=== PATIENT | female | born 1975 | race Caucasian/White ===

== ENCOUNTER 2018-03-08 17:19 | Emergency (ER) | payer MEDICAID, SELFPAY ==
[2018-03-08 17:20] VITALS: BP 114/70; PULSE 99; RESP 16; TEMP 36.9; O2SAT 97; BMI 27.8
--- NOTE | 2018-03-08 17:42 | ED.DCSUM_ITS ---
- ER Visit Summary Date of Service: 03/08/18 Chief Complaint: Rash History of Present Illness: The patient is a 43 F presenting for evaluation secondary to rash. Patient has a rash on her bilateral arms that started after she worked in the garden. Patient reports that it started off looking like it was poison sarah and then has progressively gone up her arms, was initially associated with just redness and itching and now has both redness itching as well as some pain. She denies any constitutional symptoms such as fever. She does have a history of contact allergies in the past. She denies any lip or tongue swelling. Physical Examination: Physical exam unremarkable except for skin exam of the bilateral arms. There is evidence of Marilin vesicles, generalized erythema of the entire volar surface of the forearm and upper arm, no evidence of lymphangitic streaking. No real underlying induration or fluctuance. Normal distal pulses normal distal sensation. Test Results: None indicated Emergency Department Course and Treatment: Patient is presenting secondary to a rash. This does seem like a relatively significant case of contact dermatitis, given the fact that there is pain associated with it now and generalized redness there could be an element of some cellulitis as well as the patient has been itching. There is no obvious areas of fluctuance or induration or any areas that would require draining. Patient has normal vitals and I believe that workup is necessary. Patient will be placed on a course of prednisone and Keflex, instructed to follow-up with primary care. Disposition: Discharge Impression: 1. Contact dermatitis with possible underlying cellulitis This note was generated with [employer] dictation software. It may contain incorrect words, spelling, and punctuation that were not noted in review of the chart prior to signing ED Disposition - Plan for ED Patient: Disposition: Home or Assisted Living Chief Complaint: Cellulitis Diagnosis: Contact dermatitis Instructions: ED Dermatitis Poison Sarah Prescriptions: Cephalexin [Keflex] 500 mg PO Q6 #40 cap Prednisone [Deltasone] 60 mg PO DAILY #15 tab Referrals: Willard Huber DO [Primary Care Provider] - 10-14 Days if not better
[2018-03-08] MEDS: Cephalexin 250 MG Capsule 500 MG PO (17:43)
[2018-03-08] MEDS: predniSONE 20 MG Tablet 60 MG PO (17:43)
== END 2018-03-08 17:47 | disposition home or self-care (01) ==
LOC: ED 17:44
PROVIDERS: Emergency Provider Emergency Medicine; Family Provider Student in an Organized Health Care Education/Training Program; PCP Student in an Organized Health Care Education/Training Program
DX: L25.9 Unspecified contact dermatitis, unspecified cause (principal)
CPT/HCPCS: 99283

== ENCOUNTER → 2018-12-01 20:00 | Outpatient (CLI) | payer MEDICAID, SELFPAY | PROVIDERS: Family Provider Internal Medicine; PCP Internal Medicine; Referring Provider Internal Medicine; Visit Provider Internal Medicine | DX: G47.33 Obstructive sleep apnea (adult) (pediatric) (principal); R06.83 Snoring; R53.83 Other fatigue | CPT/HCPCS: 95810 ==

== ENCOUNTER 2020-07-29 10:56 | Emergency (ER) | payer MEDICAID, SELFPAY ==
[2020-07-29 10:57] VITALS: BP 136/76; PULSE 106; RESP 18; TEMP 36.8; O2SAT 99; BMI 33.9
--- NOTE | 2020-07-29 10:59 | NURSING ---
NO OLD EKGS
--- NOTE | 2020-07-29 11:19 | EKG12_ITS ---
Test Reason : CP Blood Pressure : / mmHG Vent. Rate : 107 BPM Atrial Rate : 107 BPM P-R Int : 146 ms QRS Dur : 074 ms QT Int : 344 ms P-R-T Axes : 072 084 026 degrees QTc Int : 459 ms Sinus tachycardia Otherwise normal ECG Confirmed by AVRIL MCNEAL, FANNY ([id number]), staff editor MAGGI GUERRERO ([id number]) on 08/01/2020 9:13:42 AM Referred By: JORGE Confirmed By:FANNY MACKENZIE MD
--- NOTE | 2020-07-29 11:19 | RAD_ITS ---
STUDY: X-RAY CHEST REASON FOR EXAM: Female, 45 years old. POSITIVE COVID X 2 WEEKS TECHNIQUE: Single AP portable view of the chest. COMPARISON: 11/27/2014 FINDINGS: The lungs are clear and expanded. There is no demonstrated pleural abnormality. Normal size heart. Normal mediastinum and roxie. Normal visualized pulmonary arteries. Normal visualized aortic arch and descending thoracic aorta. Normal visualized thoracic spine. Normal visualized ribs, clavicles, and shoulders. There is no demonstrated abnormality of the visualized soft tissue structures of the upper abdomen. RAD/Chest 1 View (Portable) IMPRESSION: Nonacute portable x-ray examination of the chest. Electronically Signed: Farshad Ng MD (Brooks) at 12:05 EST , Service support ,
--- NOTE | 2020-07-29 11:21 | ED.DCSUM_ITS ---
- ER Visit Summary Date of Service: 07/29/20 Chief Complaint: Shortness of breath, palpitations History of Present Illness: The patient is a 45 F who presents with shortness of breath and palpitations that have been waxing and waning over the past 3 days. Patient states she feels some tightness in her chest. Patient states she recently tested positive for COVID-19. Patient states her symptoms started more than 2 weeks ago. Patient states her positive test was approximately 10 days ago. Patient states she did lose her sense of taste and smell but it is starting to return. Patient admits to subjective chills but denies any fevers. Physical Examination: Vital signs are stable except for mild tachycardia of 106. Patient is afebrile. Patient is in no acute distress. Oral mucosa is pink and moist. Neck is supple. Trachea is midline. There is no JVD noted. Heart was regular and slightly tachycardic. Lungs are clear and equal bilaterally. Abdomen is soft. Bowel sounds are normal. There is no tenderness. There is no rebound or guarding noted. Skin is warm dry. Cranial nerves II through XII are intact. There are no focal motor or sensory deficits noted. Extremities are intact. There is no calf tenderness or edema. Test Results: EKG shows normal sinus rhythm with a rate of 107. There are no acute ST or T wave changes. This was interpreted by myself. Portable 1 view chest x-ray was obtained. On my interpretation, lung smith are clear. There is normal cardiac silhouette. Bony thorax is normal. There is no acute process noted. Radiologist also interpreted the x-ray and agrees. CBC and comprehensive metabolic profile were within normal limits. Troponin was normal. D-dimer was normal at 0.35. Emergency Department Course and Treatment: Patient was advised of her findings. Patient was instructed to follow-up with her primary care physician in 5 to 7 days. Patient understood and was agreeable with the plan. All questions were answered. Disposition: Discharge home Impression: 1. Palpitations This note was generated with [employer] dictation software. It may contain incorrect words, spelling, and punctuation that were not noted in review of the chart prior to signing ED Disposition - Plan for ED Patient: Disposition: Home or Assisted Living Diagnosis: Palpitations Instructions: ED Palpitations Referrals: Linda Mauro MD [Primary Care Provider] - 5-7 Days
[2020-07-29 11:32] LABS: Absolute Lymphocyte Count 2.88 X10^3/uL (0.83-4.51); Absolute Neutrophil Count 4.7 X10^3/uL (2.0-7.7); Basophil# 0.04 X10^3/uL; Basophil% 0.5 % (0-1); Eosinophil# 0.19 X10^3/uL; Eosinophils% 2.2 % (0-5); Hematocrit 40.6 % (37-47); Hemoglobin 13.9 g/dL (12.0-15.0); Lymphocyte # 2.88 X10^3/ul (4.0); Lymphocyte % 33.8 % (19-41); Mean Corp Hgb Conc 34.2 g/dL (32-36); Mean Corpuscular Hgb 30.3 pg (27.0-32.0); Mean Corpuscular Volume 88.6 fL (81-99); Mean Platelet Vol. 9.9 fl (6.2-12.0); Monocyte# 0.66 X10^3/uL; Monocyte% 7.7 % (0-10); NRBC Flagged by Analyzer 0 % (0-5); Neutrophil # 4.72 X10^3/uL (2.7-7.7); Neutrophil % 55.4 % (47-70); Platelet Count 370 K/mm3 (150-450); RBC Distribution Width CV 12.4 % (11.6-14.6); RBC Distribution Width SD 39.8 fl (35.1-43.9); Red Blood Count 4.58 M/mm3 (4.2-5.4); White Blood Count 8.5 K/mm3 (4.4-11.0)
[2020-07-29 11:39] LABS: D-Dimer Quantitative (DVT/PE) 0.35 FEU/ug/m (0.27-0.49)
[2020-07-29 11:47] LABS: AST(SGOT) 10 U/L (15-37); Alanine Aminotransfer ALT/SGPT 22 U/L (13-56); Albumin, Serum 3.6 g/dL (3.2-5.0); Alkaline Phosphatase 31 U/L (45-117); Anion Gap 7 (5-15); BUN 7 mg/dL (7-18); BUN/Creat Ratio 9.5 RATIO (10-20); Calcium,Total 8.9 mg/dL (8.5-10.1); Chloride 108 mmol/L (98-107); Creatinine, Serum 0.74 mg/dL (0.55-1.02); EST Glomerular Filtration Rate 92 mL/min (>60); Est Glom Filt Rate - Afr Amer 111 mL/min (>60); Estimated Creatinine Clearance 88.21 ml/min; Globulin 3.7 g/dL (2.2-4.2); Glucose 106 mg/dL (74-106); Potassium 3.7 mmol/L (3.5-5.1); Protein, Total 7.3 g/dL (6.4-8.2); Sodium Level 141 mmol/L (136-145)
[2020-07-29 13:38] VITALS: BP 110/67; PULSE 80; RESP 17; O2SAT 99
== END 2020-07-29 13:40 | disposition home or self-care (01) ==
PROVIDERS: Emergency Provider Emergency Medicine; PCP Internal Medicine
DX: R00.2 Palpitations (principal); U07.1 COVID-19; E03.9 Hypothyroidism, unspecified
CPT/HCPCS: 71045; 80053; 84484; 85025; 85379; 93005; 96360; 96361; 99285; J7040; A4216

== ENCOUNTER 2023-04-18 12:12 | Emergency (ER) | payer OTHER, MEDICAID, SELFPAY ==
[2023-04-18 12:13] VITALS: BP 119/54; PULSE 82; RESP 18; TEMP 35.7; O2SAT 97; BMI 32.1
--- NOTE | 2023-04-18 12:25 | EDS_ITS ---
HPI <EVARISTO Fontana - Last Filed: 04/18/23 13:43> History of Present Illness Chief Complaint: Back Narrative Narrative: 48-year-old female presents with left flank/back pain that started about 3 days ago. She states initially she could pinpoint the spot that hurt but now it seems more diffuse. It is worse with movement. She cannot think of any inciting event but states a week ago she was lifting things at home. 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 No vomiting. No fever or chills. She states about 2 days ago she started her menstrual cycle so she could not tell if there was blood in her urine she has no burning or frequency. No history of kidney stones. Surgical history includes essure tubal ligation. PFSH <EVARISTO Fontana - Last Filed: 04/18/23 13:43> PFSH Home Medications albuterol sulfate 90 mcg/actuation aerosol inhaler 1 puff IH Q4H PRN PRN Sob &/Or Wheezing 07/29/20 [History Last Taken Unknown] levothyroxine 50 mcg tablet 50 mcg PO DAILY 07/29/20 [History Last Taken Unknown] methocarbamol 500 mg tablet 500 mg PO Q8H 3 days #9 tabs 04/18/23 [Rx Last Taken Unknown] naproxen 500 mg tablet (Naprosyn) 500 mg PO BID PRN pain #20 tabs 04/18/23 [Rx Last Taken Unknown] ondansetron 4 mg disintegrating tablet 4 mg PO Q8H PRN PRN Nausea #10 tabs 04/18/23 [Rx Last Taken Unknown] Allergy/AdvReac Type Severity Reaction Status Date / Time cephalexin [From Keflex] Allergy Hives Verified 04/18/23 12:12 cat dander AdvReac Shortness Verified 04/18/23 12:12 of breath poison ghislaine extract AdvReac Swelling Verified 04/18/23 12:12 Social History Smoking Status: Never smoker ROS <EVARISTO Fontana - Last Filed: 04/18/23 13:43> ROS ED ROS Narrative Constitutional: Negative for fever, chills, malaise. CVS: Negative for palpitations, chest pain, syncope. Respiratory: Negative for shortness of breath, cough. GI: Negative for abdominal pain, nausea, vomiting, diarrhea, constipation, melena, hematochezia. : Negative for dysuria, hematuria or frequency. EXAM <EVARISTO Fontana - Last Filed: 04/18/23 13:43> Physical Exam Narrative Exam Narrative: CONST: Patient sitting in no acute distress. EYES: Normal inspection. NECK: Normal inspection. RESP: No respiratory distress, CTAB. CVS: Regular rate and rhythm, no murmur, no gallop. ABD: Soft and nontender, no guarding or rebound, nondistended, no hepatosplenomegaly. Back: Normal inspection, no midline or CVA tenderness. Back pain reproducible with movement. SKIN: Color normal, no rash, warm, dry, intact. EXTREMITIES: Normal appearance, no pedal edema. NEURO: Oriented x4. PSYCH: Normal affect. Const Vital Signs: 04/18/23 12:13 Temperature 96.3 F L Temperature Source Temporal Pulse Rate 82 Respiratory Rate 18 Blood Pressure 119/54 L Blood Pressure Mean 75 Pulse Ox 97 Oxygen Delivery Method Room Air <Dr. Diaz Garcia MD - Last Filed: 04/18/23 12:34> Physical Exam Const Vital Signs: 04/18/23 12:13 Temperature 96.3 F L Temperature Source Temporal Pulse Rate 82 Respiratory Rate 18 Blood Pressure 119/54 L Blood Pressure Mean 75 Pulse Ox 97 Oxygen Delivery Method Room Air MDM <EVARISTO Fontana - Last Filed: 04/18/23 13:43> [facility] Narrative Medical decision making narrative: Patient has left flank pain over the last few days. She appears well and nontoxic and is afebrile with normal vital signs. Normal cardiopulmonary exam. Abdomen is soft and nontender. She has no reproducible tenderness of her spine or back but does have a lot of pain with movement. She is very gingerly getting into the bed and states bending worsens the pain so I suspect this is musculoskeletal. She was treated with IM Toradol and urinalysis obtained. It does show blood consistent with her menstrual cycle but no nitrates or bacteria so I do not think this is a UTI. The nurse states after she ambulated to the bathroom she was diaphoretic and uncomfortable so a CT was obtained to rule out a kidney stone. CT shows no acute process. Since this is most likely musculoskeletal I prescribed naproxen and a muscle relaxer and recommended follow-up with her primary care. She was discharged in stable condition. Differential: Musculoskeletal flank pain, kidney stone, UTI, pyelonephritis I have personally performed a face to face assessment of the patient and have reviewed the MANDO Note. I performed a substantive portion of the visit including all aspects of the following. My iverson findings include: History is 48-year-old female complaining of left flank and paraspinal back pain. Denies any fall injury or trauma. No prior back history. No dysuria or fever. Worse with movement. Exam is [48-year-old female no acute distress. Vital signs stable afebrile. HEENT exam normal. Lungs clear. Heart regular rhythm. Abdomen soft nontender. Back to the left paraspinal soft tissue tenderness. No ecchymosis or bruising no redness or warmth. No rash. Moving all 4 extremities. Neurovascularly intact. Normal strength and sensation. Neurologic exam normal.] Medical Decision Making [she states that 48-year-old exam consistent with musculoskeletal back pain. Treated with IM Toradol. We will check a UA. Clinically this does not appear to be a kidney stone or UTI.] Other additions or changes: [None] Lab Data Attestation: I reviewed the patient's lab results. Labs: Laboratory Results - last 24 hr 04/18/23 12:36 Urine Color Yellow Urine Clarity Clear Urine pH 7.0 Ur Specific [place] 1.010 Urine Protein Negative Urine Glucose (UA) Normal Urine Ketones Negative Urine Occult Blood 250 H Urine Nitrite Negative Urine Bilirubin Negative Urine Urobilinogen Normal Ur Leukocyte Esterase 25 H Urine RBC 25-50 SEEN Urine WBC 0-5 SEEN Ur Squamous Epith Cells 0-5 SEEN Urine Bacteria 0 SEEN Urine Mucus 0 SEEN Radiography Diagnostic Testing: Clinical Impression(s) from Imaging Studies Abdomen/Pelvis CT 04/18/23 12:50 IMPRESSION: Normal unenhanced CT of the abdomen and pelvis. Electronically Signed: Viraj Man MD at 13:31 EDT , <Dr. Diaz Garcia MD - Last Filed: 04/18/23 12:34> MDM MDM Narrative Medical decision making narrative: I have personally performed a face to face assessment of the patient and have reviewed the MANDO Note. I performed a substantive portion of the visit including all aspects of the following. My iverson findings include: History is 48-year-old female complaining of left flank and paraspinal back pain. Denies any fall injury or trauma. No prior back history. No dysuria or fever. Worse with movement. Exam is [48-year-old female no acute distress. Vital signs stable afebrile. HEENT exam normal. Lungs clear. Heart regular rhythm. Abdomen soft nontender. Back to the left paraspinal soft tissue tenderness. No ecchymosis or bruising no redness or warmth. No rash. Moving all 4 extremities. Neurovascularly intact. Normal strength and sensation. Neurologic exam normal.] Medical Decision Making [she states that 48-year-old exam consistent with musculoskeletal back pain. Treated with IM Toradol. We will check a UA. Clinically this does not appear to be a kidney stone or UTI.] Other additions or changes: [None] History & Record Review Discussion w/independent historian: Patient Additional record(s) reviewed:: Prior inpatient record, Prior outpatient record, Prior ED visit and Prior labs Lab Data Labs: Laboratory Results - last 24 hr 04/18/23 12:36 Urine Color Yellow Urine Clarity Clear Urine pH 7.0 Ur Specific [place] 1.010 Urine Protein Negative Urine Glucose (UA) Normal Urine Ketones Negative Urine Occult Blood 250 H Urine Nitrite Negative Urine Bilirubin Negative Urine Urobilinogen Normal Ur Leukocyte Esterase 25 H Urine RBC 25-50 SEEN Urine WBC 0-5 SEEN Ur Squamous Epith Cells 0-5 SEEN Urine Bacteria 0 SEEN Urine Mucus 0 SEEN Radiography Diagnostic Testing: Clinical Impression(s) from Imaging Studies Abdomen/Pelvis CT 04/18/23 12:50 IMPRESSION: Normal unenhanced CT of the abdomen and pelvis. Electronically Signed: Viraj Man MD at 13:31 EDT , Discharge Plan Triage Chief Complaint: Back Other Complaint: Abd Pain Flank Pain ED Midlevel Provider: Audrey Irwin ED Provider: Diaz Garcia Dx/Rx/DC Orders Clinical Impression: Acute left flank pain, Musculoskeletal back pain Instructions: Medicine for Pain, ED Flank Pain, Uncertain Cause Prescriptions: New naproxen [Naprosyn] 500 mg tablet 500 mg PO BID PRN (Reason: pain) Qty: 20 0RF ondansetron 4 mg tablet,disintegrating 4 mg PO Q8H PRN PRN (Reason: Nausea) Qty: 10 0RF methocarbamol 500 mg tablet 500 mg PO Q8H 3 Days Qty: 9 0RF No Action levothyroxine 50 MCG tablet 50 mcg PO DAILY albuterol sulfate 1 PUFF inhaler 1 puff IH Q4H PRN PRN (Reason: Sob &/Or Wheezing) Primary Care Provider: Care Physician,No Primary Referrals: Linda Mauro MD [Med Staff - Ship Pilot Dispatcher] - Activity Restrictions/Additional Instructions: Your CT scan looked normal with no evidence of kidney stone or abnormality. I suspect this is musculoskeletal pain and prescribed naproxen which is twice a day. It is an anti-inflammatory pain reliever. You can also buy [id number] Tylenol and lidocaine patches and use ice. Please follow-up with your primary care doctor. Disposition Disposition: Home, Self Care
[2023-04-18] MEDS: Ketorolac 30 MG/ML Syringe IM (12:34)
[2023-04-18 12:41] LABS: Bacteria 0 SEEN /hpf (None Seen); Mucous, Urine 0 SEEN /hpf (<or=2+)
[2023-04-18 12:43] LABS: Color, Urine Yellow (Yellow); Glucose, Dipstick Normal (Normal); Ketone-Dipstick Negative (Negative); Leukocyte Esterase-Dipstick 25 /ul (Negative); Nitrite-Dipstick Negative (Negative); Occult Blood-Urine 250 /ul (Negative); Protein-Dipstick Negative (Negative); Urine Bilirubin Dipstick Negative (Negative); Urine Clarity Clear (Clear); Urine Urobilinogen Normal (Normal)
--- NOTE | 2023-04-18 12:50 | CT_ITS ---
STUDY: CT ABDOMEN AND PELVIS WITHOUT CONTRAST REASON FOR EXAM: Female, 48 years old. Left flank pain RADIATION DOSAGE (If Supplied By Facility): CTDIvol = ( 11.32 ) mGy, DLP = ( 554.06 ) mGycm TECHNIQUE: Transaxial images were obtained from the dome of the diaphragm to the symphysis pubis without oral contrast, and without intravenous contrast. Sagittal and coronal images were reconstructed. Individualized dose optimization techniques were used for this CT. COMPARISON: None. FINDINGS: The visualized lung bases are unremarkable. The visualized portions of the heart are within normal limits. Normal liver. Normal gallbladder and extrahepatic biliary system. Normal spleen. Normal pancreas. Normal bilateral adrenal glands. Normal right kidney. Normal left kidney. Normal visualized stomach. Normal small intestine. Normal colon. The appendix is visualized and appears normal. Normal abdominal aorta. Normal inferior vena cava. Normal retroperitoneum. Normal urinary bladder. Cervical ring is seen. There is evidence of prior ESSURE replacement. Normal abdominal wall. Normal osseous structures. CT/Abdomen/Pelvis without Cont IMPRESSION: Normal unenhanced CT of the abdomen and pelvis. Electronically Signed: Viraj Man MD at 13:31 EDT ,
[2023-04-18] MEDS: Ondansetron ODT 4 MG Tablet PO (12:53)
[2023-04-18 12:54] LABS: Red Blood Cells-Urine 25-50 SEEN /hpf (0-5); White Blood Cells 0-5 SEEN /hpf (0-5)
[2023-04-18 12:55] LABS: Squamous Epithelial Cells - UA 0-5 SEEN /hpf (5-10)
[2023-04-18] MEDS: Lidocaine 5% Patch 1 PATCH TOPICAL (13:42)
== END 2023-04-18 13:46 | disposition home or self-care (01) ==
PROVIDERS: Physician Assistant; Emergency Provider Emergency Medicine; Visit Provider Emergency Medicine
DX: R10.9 Unspecified abdominal pain (principal); M54.9 Dorsalgia, unspecified
CPT/HCPCS: 74176; 81001; 96372; 99284

== ENCOUNTER 2023-10-12 11:21 | Emergency (ER) | payer OTHER, SELFPAY ==
[2023-10-12 11:21] VITALS: BP 143/76; PULSE 86; RESP 16; TEMP 36.5; O2SAT 100; BMI 33.4
--- NOTE | 2023-10-12 11:32 | CT_ITS ---
INDICATION: Pain EXAMINATION: CT ABDOMEN AND PELVIS WITHOUT CONTRAST - CT Abdomen And Pelvis W/O Contrast Injection TECHNIQUE: Helically acquired images were obtained of the abdomen and pelvis without oral or IV contrast. A radiation dose optimization technique was used for this scan. IV Contrast dosage and agent: None. Oral contrast: None. RADIATION DOSAGE (If Supplied By Facility): CTDIvol = ( 12.64 ) mGy, DLP = ( 617.46 ) mGycm COMPARISON: April 18, 2023 FINDINGS: LOWER CHEST: Lung bases are clear. No cardiomegaly or pericardial effusion. The lack of intravenous contrast limits evaluation of solid visceral organs. LIVER: Homogeneous. No focal mass. GALLBLADDER AND BILIARY TREE: No calcified gallstones. No gallbladder distension or wall edema. No intra- or extrahepatic biliary ductal dilation. PANCREAS: No focal cystic or solid mass. SPLEEN: Normal size without focal cystic or solid mass. ADRENAL GLANDS: No nodules. KIDNEYS AND URETERS: Normal renal size and position. There is mild left-sided hydronephrosis. There is a nonobstructing 4.6 mm left renal calculus. PERITONEUM: No ascites or free air. No other fluid collection. BOWEL: No evidence of acute appendicitis. No stomach or bowel distension. There is a moderate amount of stool throughout the colon. No focal inflammatory change. LYMPH NODES: No enlarged mesenteric or retroperitoneal lymph nodes. VESSELS: Aorta is non-dilated. URINARY BLADDER: Unremarkable. REPRODUCTIVE ORGANS: No pelvic masses. There are stable Essure coils in place. ABDOMINAL WALL: No discrete abdominal or pelvic wall hernia. BONES: No lytic or blastic abnormality. CT/Abdomen/Pelvis without Cont IMPRESSION: Mild right-sided hydronephrosis with no associated radiopaque obstructing calculus, may be secondary to recent passage of a calculus, a radiolucent obstructing calculus or an infectious process. Moderate amount of stool throughout the colon. Nonobstructing 4.6 mm left renal calculus. Electronically Signed: Ivis Romero MD at 12:32 EST ,
--- NOTE | 2023-10-12 11:33 | EX.ED.DYSGE1 ---
HPI <AMELIA Talbert - Last Filed: 10/12/23 12:50> History of Present Illness Chief Complaint: Flank Pain Narrative Narrative: Patient is a 48-year-old female with history of hypothyroidism who presents to the emergency department with 3 to 4 days of worsening right flank pain. Patient states that she thought she had a UTI, however over the last 24 hours, she has been having shooting pains in her stomach, radiation from her flank to her abdomen. She was trying to hold off to see her doctor on Friday or Friday however states the pain is severe and she is here for evaluation. Denies any nausea or vomiting. PFSH <AMELIA Talbert - Last Filed: 10/12/23 12:50> PFSH Home Medications albuterol sulfate 90 mcg/actuation aerosol inhaler 1 puff IH Q4H PRN PRN Sob &/Or Wheezing 07/29/20 [History Last Taken Unknown] levothyroxine 50 mcg tablet 50 mcg PO DAILY 07/29/20 [History Last Taken Unknown] methocarbamol 500 mg tablet 500 mg PO Q8H 3 days #9 tabs 04/18/23 [Rx Last Taken Unknown] naproxen 500 mg tablet (Naprosyn) 500 mg PO BID PRN pain #20 tabs 04/18/23 [Rx Last Taken Unknown] ondansetron 4 mg disintegrating tablet 4 mg PO Q8H PRN PRN Nausea #10 tabs 04/18/23 [Rx Last Taken Unknown] sulfamethoxazole 800 mg-trimethoprim 160 mg tablet (Bactrim DS) 1 tab PO BID #20 tabs 10/12/23 [Rx Last Taken Unknown] Allergy/AdvReac Type Severity Reaction Status Date / Time cephalexin [From [facility]] Allergy Hives Verified 04/18/23 12:12 cat dander AdvReac Shortness Verified 04/18/23 12:12 of breath poison ghislaine extract AdvReac Swelling Verified 04/18/23 12:12 Social History Smoking Status: Never smoker ROS <AMELIA Talbert - Last Filed: 10/12/23 12:50> ROS ED ROS Narrative Constitutional: Negative for fever, chills, weight loss, weakness Eyes: Negative for vision loss, vision change, double vision ENT: Negative for any sore throat, ear pain, congestion Cardiovascular: Negative for any chest pain, tightness, palpitations Respiratory: Negative for any cough, sputum production, hemoptysis, dyspnea, dyspnea on exertion, orthopnea Gastrointestinal: Negative for any nausea, vomiting, diarrhea, constipation, blood in stool, blood in vomit. Positive for abdominal pain, right flank pain : Negative for any urinary frequency, retention, blood in urine. Positive for dysuria Muscle skeletal: Negative for any myalgias, arthralgias, neck pain. Positive for right-sided back pain, flank pain Neurological: Negative for any headache, syncope, paresthesias, dizziness Skin: Negative for any rashes, lumps, itching, abrasions, lacerations Psychiatric: Negative for any depression, anxiety, stress, suicidal ideation, homicidal ideation Hematologic: Negative for any easy bruising, excessive bruising, easy bleeding Allergies: Negative for any eczema, hives, rash EXAM <AMELIA Talbert - Last Filed: 10/12/23 12:50> Physical Exam Narrative Exam Narrative: Vital signs reviewed. Patient does appear to be in mild to moderate discomfort to her right flank. HEET: Head normocephalic atraumatic, TMs clear bilaterally. Posterior pharynx is clear, moist mucous membranes. Nares clear bilaterally. Neck: Supple with no lymphadenopathy or tenderness. No signs of meningismus. Cardiac: Regular rate and rhythm no murmurs gallops or rubs, equal peripheral pulses bilaterally. Respiratory: Lungs clear to auscultation bilaterally. No chest tenderness. Abdomen: Soft, nondistended. No abdominal bruit or pulsatile masses. No hepatosplenomegaly. Patient does have some tenderness to the right flank, right lateral abdomen. Negative Medina sign. Extremities: No peripheral edema, no signs of gross trauma or deformity. Active full range of motion of all extremities. Neuro: Cranial nerves II through XII intact, no focal neurological deficits. Skin: Clean dry and intact with no rash, purpura, petechiae, vesicles or pustules. Backs/flank: No CVA tenderness, no midline spinal tenderness, no deformity. Psych: Normal mood and affect. No SI, HI or acute psychosis. Const Vital Signs: 10/12/23 11:21 10/12/23 13:02 Temperature 97.7 F L Temperature Source Temporal Pulse Rate 86 Respiratory Rate 16 16 Blood Pressure 143/76 H 102/70 Blood Pressure Mean 98 80 Pulse Ox 100 Oxygen Delivery Method Room Air <Dr. Maricel Locke DO - Last Filed: 10/12/23 13:52> Physical Exam Const Vital Signs: 10/12/23 11:21 10/12/23 13:02 Temperature 97.7 F L Temperature Source Temporal Pulse Rate 86 Respiratory Rate 16 16 Blood Pressure 143/76 H 102/70 Blood Pressure Mean 98 80 Pulse Ox 100 Oxygen Delivery Method Room Air MDM <AMELIA Talbert - Last Filed: 10/12/23 12:50> [facility] Lab Data Labs: Laboratory Results - last 24 hr 10/12/23 11:49 WBC 9.7 RBC 4.53 Hgb 13.6 Hct 40.7 MCV 89.8 MCH 30.0 MCHC 33.4 RDW Std Deviation 41.3 RDW Coeff of Luiza 12.6 Plt Count 360 MPV 10.0 Immature Gran % (Auto) 1.000 H Neut % (Auto) 66.6 Lymph % (Auto) 21.5 Charles % (Auto) 9.2 Eos % (Auto) 1.2 Baso % (Auto) 0.5 Absolute Neuts (auto) 6.5 Absolute Lymphs (auto) 2.08 Nucleated RBC % 0 Sodium 140 Potassium 4.1 Chloride 107 Carbon Dioxide 27.0 Anion Gap 6 BUN 12 Creatinine 0.75 Estim Creat Clear Calc 104.51 Est GFR (MDRD) Af Amer 106 Est GFR (MDRD) Non-Af 88 BUN/Creatinine Ratio 15.9 Glucose 90 Calcium 9.5 Total Bilirubin 0.50 AST 11 L ALT 18 Alkaline Phosphatase 27 L Total Protein 7.5 Albumin 3.8 Globulin 3.7 Albumin/Globulin Ratio 1.0 Lipase 24 Urine Color Yellow Urine Clarity Clear Urine pH 7.0 Ur Specific [place] 1.005 Urine Protein 15 H Urine Glucose (UA) Normal Urine Ketones Negative Urine Occult Blood 150 H Urine Nitrite Negative Urine Bilirubin Negative Urine Urobilinogen Normal Ur Leukocyte Esterase 500 H Urine RBC 0 SEEN Urine WBC 10-25 SEEN Ur Squamous Epith Cells 0-5 SEEN Urine Bacteria 1+ Urine Mucus 0 SEEN Radiography Diagnostic Testing: Clinical Impression(s) from Imaging Studies Abdomen/Pelvis CT 10/12/23 11:32 IMPRESSION: Mild right-sided hydronephrosis with no associated radiopaque obstructing calculus, may be secondary to recent passage of a calculus, a radiolucent obstructing calculus or an infectious process. Moderate amount of stool throughout the colon. Nonobstructing 4.6 mm left renal calculus. Electronically Signed: Ivis Romero MD at 12:32 EST , Treatment and Re-Evaluation :: Patient appears to be in no obvious respiratory distress, vital signs are stable. Patient does look like she is in mild to moderate amount of pain to the right flank. Differential diagnose includes pyelonephritis, UTI, back strain, obstructing uropathy. Patient received some basic laboratory values, I did include upper abdominal labs concerning for any pancreatitis just because of her history of gallstones. Patient will receive a CT scan of the abdomen pelvis without contrast. Patient receive IV fluids, Zofran as well as Toradol. Patient be reevaluated. All radiologic examinations were read, reviewed by the emergency department attending. From these reads, a plan of care will be put in place. Patient laboratory values showed normal CBC, patient's chemistries were unremarkable, kidney function within normal limit,, lipase was negative. Patient's urinalysis was positive for infection with 1+ bacteria 10-25 white blood cells, 500 leukocytes, [address] scan showed mild right-sided hydronephrosis with no associated radiopaque obstructing calculus, may be secondary to recent passage of calculus or infectious process. Nonobstructing 4.6 mm left kidney calculus. At this time, I spoke with the patient at length, she is able to pass a p.o. challenge, she does feel better after IV fluids, IV Toradol. I offered the patient pain medicine however she refused at this time. Patient be placed on Bactrim twice a day for 10 days. She was given strict return precaution to return for any worsening back pain, fever chills nausea vomiting. All questions answered, stable for discharge. <Dr. Maricel Locke, DO - Last Filed: 10/12/23 13:52> [facility] Narrative Medical decision making narrative: I have personally performed a face to face assessment of the patient and have reviewed the MANDO Note. I performed a substantive portion of the visit including all aspects of the following. My iverson findings include: History is patient is a 48-year-old female with history of hypothyroid and gallstones presenting with worsening right flank pain. She does not think she has a history of kidney stones but wonders if she is passed them in the past. She notes that she had worsening right flank pain that developed last night and woke her from sleep. It is worsened throughout the day. She describes it as sharp. Radiates around to her abdomen. Has associated nausea and sweating from the pain. Couple days ago was feeling like she was developing urinary tract infection and started treating it with a homeopathic remedy. Denies any fever. Notes that yesterday she was having more diffuse crampy abdominal pain that she thought was just gas pains. She ate chicken and [place] fires for dinner last night. Differential includes renal colic, pyelonephritis, biliary colic and cholecystitis. Lab work and CT are pending at this time. Patient initially treated with Zofran, Toradol and IV fluids (declined anything stronger for pain control at this time). Workup consistent with pyelonephritis. Kidney function is normal and she does not have a leukocytosis. Urinalysis is consistent with infection and sent for culture. Patient started on Bactrim given first dose in the emergency room. Discharged home with return precautions. She verbalized agreement and understands this plan. Other additions or changes: [None] Lab Data Labs: Laboratory Results - last 24 hr 10/12/23 11:49 WBC 9.7 RBC 4.53 Hgb 13.6 Hct 40.7 MCV 89.8 MCH 30.0 MCHC 33.4 RDW Std Deviation 41.3 RDW Coeff of Luiza 12.6 Plt Count 360 MPV 10.0 Immature Gran % (Auto) 1.000 H Neut % (Auto) 66.6 Lymph % (Auto) 21.5 Charles % (Auto) 9.2 Eos % (Auto) 1.2 Baso % (Auto) 0.5 Absolute Neuts (auto) 6.5 Absolute Lymphs (auto) 2.08 Nucleated RBC % 0 Sodium 140 Potassium 4.1 Chloride 107 Carbon Dioxide 27.0 Anion Gap 6 BUN 12 Creatinine 0.75 Estim Creat Clear Calc 104.51 Est GFR (MDRD) Af Amer 106 Est GFR (MDRD) Non-Af 88 BUN/Creatinine Ratio 15.9 Glucose 90 Calcium 9.5 Total Bilirubin 0.50 AST 11 L ALT 18 Alkaline Phosphatase 27 L Total Protein 7.5 Albumin 3.8 Globulin 3.7 Albumin/Globulin Ratio 1.0 Lipase 24 Urine Color Yellow Urine Clarity Clear Urine pH 7.0 Ur Specific [place] 1.005 Urine Protein 15 H Urine Glucose (UA) Normal Urine Ketones Negative Urine Occult Blood 150 H Urine Nitrite Negative Urine Bilirubin Negative Urine Urobilinogen Normal Ur Leukocyte Esterase 500 H Urine RBC 0 SEEN Urine WBC 10-25 SEEN Ur Squamous Epith Cells 0-5 SEEN Urine Bacteria 1+ Urine Mucus 0 SEEN Radiography Diagnostic Testing: Clinical Impression(s) from Imaging Studies Abdomen/Pelvis CT 10/12/23 11:32 IMPRESSION: Mild right-sided hydronephrosis with no associated radiopaque obstructing calculus, may be secondary to recent passage of a calculus, a radiolucent obstructing calculus or an infectious process. Moderate amount of stool throughout the colon. Nonobstructing 4.6 mm left renal calculus. Electronically Signed: Ivis Romero MD at 12:32 EST , Treatment and Re-Evaluation :: Patient appears to be in no obvious respiratory distress, vital signs are stable. Patient does look like she is in mild to moderate amount of pain to the right flank. Differential diagnose includes pyelonephritis, UTI, back strain, obstructing uropathy. Patient received some basic laboratory values, I did include upper abdominal labs concerning for any pancreatitis just because of her history of gallstones. Patient will receive a CT scan of the abdomen pelvis without contrast. Patient receive IV fluids, Zofran as well as Toradol. Patient be reevaluated. All radiologic examinations were read, reviewed by the emergency department attending. From these reads, a plan of care will be put in place. Discharge Plan Triage Chief Complaint: Flank Pain ED Midlevel Provider: Bryan Santamaria ED Provider: Maricel Locke Dx/Rx/DC Orders Clinical Impression: Acute flank pain, Pyelonephritis Instructions: ED Pyelonephritis, Female (Adult) Prescriptions: New sulfamethoxazole-trimethoprim [Bactrim DS] 800-160 mg tablet 1 tab PO BID Qty: 20 0RF No Action levothyroxine 50 MCG tablet 50 mcg PO DAILY albuterol sulfate 1 PUFF inhaler 1 puff IH Q4H PRN PRN (Reason: Sob &/Or Wheezing) naproxen [Naprosyn] 500 mg tablet 500 mg PO BID PRN (Reason: pain) Qty: 20 0RF ondansetron 4 mg tablet,disintegrating 4 mg PO Q8H PRN PRN (Reason: Nausea) Qty: 10 0RF methocarbamol 500 mg tablet 500 mg PO Q8H 3 Days Qty: 9 0RF Primary Care Provider: Linda Mauro Referrals: Care Physician,No Primary [Non-Staff] - Activity Restrictions/Additional Instructions: Take the antibiotics until finished. They are twice a day. Maintain hydration. If you have worsening back pain, fever, chills, nausea or vomiting you need to return. Disposition Disposition: Home, Self Care Discharge Date/Time: 10/12/23 13:04
[2023-10-12] MEDS: Ketorolac 15 MG/ML Vial IV (11:44)
[2023-10-12] MEDS: Ondansetron 4 MG/2 ML Vial IV (11:44)
[2023-10-12] MEDS: 0.9% Normal Saline (1000mL) 1,000 ML 1000 ML IV (11:44)
[2023-10-12 11:57] LABS: Mucous, Urine 0 SEEN /hpf (<or=2+); Red Blood Cells-Urine 0 SEEN /hpf (0-5)
[2023-10-12 12:00] LABS: Color, Urine Yellow (Yellow); Glucose, Dipstick Normal (Normal); Ketone-Dipstick Negative (Negative); Leukocyte Esterase-Dipstick 500 /ul (Negative); Nitrite-Dipstick Negative (Negative); Occult Blood-Urine 150 /ul (Negative); Protein-Dipstick 15 mg/dl (Negative); Specific Gravity, Urine 1.005 (1.002-1.030); Urine Bilirubin Dipstick Negative (Negative); Urine Clarity Clear (Clear); Urine Urobilinogen Normal (Normal)
[2023-10-12 12:04] LABS: Absolute Lymphocyte Count 2.08 X10^3/uL (0.83-4.51); Absolute Neutrophil Count 6.5 X10^3/uL (2.0-7.7); Basophil# 0.05 X10^3/uL; Basophil% 0.5 % (0-1); Eosinophil# 0.12 X10^3/uL; Eosinophils% 1.2 % (0-5); Hematocrit 40.7 % (37-47); Hemoglobin 13.6 g/dL (12.0-15.0); Lymphocyte # 2.08 X10^3/ul (0.83-4.51); Lymphocyte % 21.5 % (19-41); Mean Corp Hgb Conc 33.4 g/dL (32-36); Mean Corpuscular Volume 89.8 fL (81-99); Monocyte# 0.89 X10^3/uL; Monocyte% 9.2 % (0-10); NRBC Flagged by Analyzer 0 % (0-5); Neutrophil # 6.45 X10^3/uL (2.7-7.7); Neutrophil % 66.6 % (47-70); Platelet Count 360 K/mm3 (150-450); RBC Distribution Width CV 12.6 % (11.6-14.6); RBC Distribution Width SD 41.3 fl (35.1-43.9); Red Blood Count 4.53 M/mm3 (4.2-5.4); White Blood Count 9.7 K/mm3 (4.4-11.0)
[2023-10-12 12:10] LABS: Bacteria 1+ /hpf (None Seen); Squamous Epithelial Cells - UA 0-5 SEEN /hpf (5-10); White Blood Cells 10-25 SEEN /hpf (0-5)
[2023-10-12 12:18] LABS: AST(SGOT) 11 U/L (15-37); Alanine Aminotransfer ALT/SGPT 18 U/L (13-56); Albumin, Serum 3.8 g/dL (3.2-5.0); Alkaline Phosphatase 27 U/L (45-117); Anion Gap 6 (5-15); BUN 12 mg/dL (7-18); BUN/Creat Ratio 15.9 RATIO (10-20); Calcium,Total 9.5 mg/dL (8.5-10.1); Chloride 107 mmol/L (98-107); Creatinine, Serum 0.75 mg/dL (0.55-1.02); EST Glomerular Filtration Rate 88 mL/min (>60); Est Glom Filt Rate - Afr Amer 106 mL/min (>60); Estimated Creatinine Clearance 104.51 ml/min; Globulin 3.7 g/dL (2.2-4.2); Glucose 90 mg/dL (74-106); Lipase 24 U/L (13-75); Potassium 4.1 mmol/L (3.5-5.1); Protein, Total 7.5 g/dL (6.4-8.2); Sodium Level 140 mmol/L (136-145)
[2023-10-12] MEDS: Smz/Tmp Ds Tablet 1 TABLET PO (12:28)
--- OUTSIDE RECORDS SUMMARY | 2023-10-12 12:30 | XMS RPT_ITS | CCD ---
Author Name Unknown Address [address] [place] [address] Organization [facility] Care Team Providers Care Merchandise Executive Name Role Phone Linda Alvarez MD Primary Care Provider LINDA ALVAREZ Attending Unavailable LINDA ALVAREZ Primary Care Unavailable LINDA ALVAREZ Primary Care Unavailable LINDA ALVAREZ Referring Unavailable LINDA ALVAREZ Primary Care Unavailable DEBBIE TOWNSEND Attending Unavailable LINDA ALVAREZ Primary Care Unavailable LINDA ALVAREZ Referring Unavailable Allergies Allergy Classification Reported Allergen(s) Allergy Type Date of Onset Reaction(s) Facility (16 sources) Cat; Translations: [CATS] Propensity to adverse reactions [address] [facility] Work Phone: (16 sources) Cephalexin; Translations: [CEPHALEXIN] Drug Allergy 9 Rash, Hives, Itching [facility] Work Phone: (16 sources) Dust; Translations: [DUST] Propensity to adverse reactions [address] [facility] Work Phone: (16 sources) Seasonal allergy; Translations: [SEASONAL ALLERGIES] Allergy to substance [address] [facility] Work Phone: Medications Completed/Discontinued Medications Medication Drug Class(es) Dates Sig (Normalized) Sig (Original) [id number] 200 actuat albuterol 0.09 mg/actuat metered dose inhaler (15 sources) beta2-Adrenergic Agonist Start: 01-09-2019 End: 11-04-2022 take 2 puff(s) by inhalation every four hours as needed for wheezing albuterol HFA (VENTOLIN HFA) 90 mcg/actuation inhaler Inhale 2 Puffs as instructed every 4 hours as needed for wheezing/shortnes s of breath. 1 Each 1 11/04/2022 Active Problems Active Problems Problem Classification Problem Date Documented Da te Episodic/Chronic Anxiety disorders (15 sources) Panic attack; Translations: [Panic disorder [episodic paroxysmal anxiety]] Onset: 05-07-2019 05-07-2019 Chronic Asthma (16 sources) Asthma; Translations: [Unspecified asthma, uncomplicated] Onset: 05-14-2015 05-14-2015 Chronic Menstrual disorders (15 sources) Dysmenorrhea; Translations: [Dysmenorrhea, unspecified] Onset: 10-19-2014 10-19-2014 Chronic Other aftercare (1 source) Other data analysis manager (current) drug therapy; Translations: [Medication management] Onset: 10-10-2023 Episodic Other diseases of bladder and urethra (1 source) Hypertrophy of bladder; Translations: [Other specified disorders of bladder] Chronic Other diseases of bladder and urethra (1 source) Other specified disorders of bladder; Translations: [Bladder wall thickening] Onset: 11-11-2022 Chronic Other female genital disorders (15 sources) Dyspareunia; Translations: [Dyspareunia] Onset: 10-19-2014 10-19-2014 Chronic Other female genital disorders (15 sources) Abnormal uterine bleeding; Translations: [Abnormal uterine and vaginal bleeding, unspecified] Onset: 10-19-2014 10-19-2014 Chronic Other gastrointestinal disorders (1 source) Diarrhea; Translations: [Diarrhea, unspecified] Episodic Other gastrointestinal disorders (1 source) Constipation; Translations: [Constipation, unspecified] 06-24-2023 Episodic Other screening for suspected conditions (not mental disorders or infectious disease) (2 sources) Patient encounter status; Translations: [Encounter for screening mammogram for malignant neoplasm of breast] Episodic Other upper respiratory disease (1 source) Deviated nasal septum; Translations: [Deviated nasal septum] Episodic Peritonitis and intestinal abscess (2 sources) Infectious disease of abdomen; Translations: [Peritonitis, unspecified] Episodic Residual codes; unclassified (17 sources) Obstructive sleep apnea syndrome; Translations: [Obstructive sleep apnea (adult) (pediatric)] Onset: 02-11-2019 02-11-2019 Chronic Past or Other Problems Problem Classification Problem Date Documented Da te Episodic/Chronic Abdominal pain (20 sources) Pain in female pelvis; Translations: [Pelvic and perineal pain] Onset: 10-19-2014 10-19-2014 Episodic Cardiac dysrhythmias (16 sources) Palpitations; Translations: [Palpitations] Onset: 02-18-2013 02-18-2013 Episodic Genitourinary symptoms and ill-defined conditions (3 sources) Dysuria; Translations: [Dysuria] Onset: 11-11-2022 Episodic Results Test Name Value Interpretation Reference Range Facil ity Vital Signs Date Time Vital Sign Value Performing Clinician Nick pace 06-24-2023 10:48-0400 Body height 162.6 cm Debbie Garciaynecarlos JIG HAND.VENTILATION WORKER Work Phone: [facility] 06-24-2023 10:48-0400 Body weight 87.09 kg Debbie Townsend JIG HAND.VENTILATION WORKER Work Phone: [facility] 11-11-2022 11:33-0400 Body height 162.6 cm Linda Alvarez MD Work Phone: [facility] 11-11-2022 11:33-0400 Body temperature 99.19 [degF] Linda Alvarez MD Work Phone: [facility] 11-11-2022 11:33-0400 Body weight 83.46 kg Linda Alvarez MD Work Phone: [facility] 11-11-2022 11:33-0400 Diastolic blood pressure 62 mm[Hg] Linda Alvarez MD Work Phone: [facility] 11-11-2022 11:33-0400 Heart rate 76 /min Linda Alvarez MD Work Phone: [facility] 11-11-2022 11:33-0400 Respiratory rate 12 /min Linda Alvarez MD Work Phone: [facility] 11-11-2022 11:33-0400 SaO2% (BldA) [Mass fraction] 99 % Linda Alvarez MD Work Phone: [facility] 11-11-2022 11:33-0400 Systolic blood pressure 122 mm[Hg] Linda Alvarez MD Work Phone: [facility] 10-11-2022 12:57-0500 Body height 162.6 cm Leandro Bolanos MD Work Phone: [facility] 10-11-2022 12:57-0500 Body temperature 99.3 [degF] Leandro Bolanos MD Work Phone: [facility] 10-11-2022 12:57-0500 Body weight 85.73 kg Leandro Bolanos MD Work Phone: [facility] 10-11-2022 12:57-0500 Diastolic blood pressure 70 mm[Hg] Leandro Bolanos MD Work Phone: [facility] 10-11-2022 12:57-0500 Heart rate 100 /min Leandro Bolanos MD Work Phone: [facility] 10-11-2022 12:57-0500 SaO2% (BldA) [Mass fraction] 97 % Leandro Bolanos MD Work Phone: [facility] 10-11-2022 12:57-0500 Systolic blood pressure 120 mm[Hg] Leandro Bolanos MD Work Phone: [facility] 10-11-2022 08:10-0500 Body height 162.6 cm Linda Alvarez MD Work Phone: [facility] 10-11-2022 08:10-0500 Body temperature 98.91 [degF] Linda Alvarez MD Work Phone: [facility] 10-11-2022 08:10-0500 Body weight 83.01 kg Linda Alvarez MD Work Phone: [facility] 10-11-2022 08:10-0500 Diastolic blood pressure 70 mm[Hg] Linda Alvarez MD Work Phone: [facility] 10-11-2022 08:10-0500 Heart rate 88 /min Linda Alvarez MD Work Phone: [facility] 10-11-2022 08:10-0500 Respiratory rate 12 /min Linda Alvarez MD Work Phone: [facility] 10-11-2022 08:10-0500 SaO2% (BldA) [Mass fraction] 97 % Linda Alvarez MD Work Phone: [facility] 10-11-2022 08:10-0500 Systolic blood pressure 126 mm[Hg] Linda Alvarez MD Work Phone: [facility] 07-01-2022 15:25-0400 Body height 162.6 cm Linda Alvarez MD Work Phone: [facility] 07-01-2022 15:25-0400 Body weight 84.37 kg Linda Alvarez MD Work Phone: [facility] 07-01-2022 15:25-0400 Diastolic blood pressure 62 mm[Hg] Linda Alvarez MD Work Phone: [facility] 07-01-2022 15:25-0400 Heart rate 78 /min Linda Alvarez MD Work Phone: [facility] 07-01-2022 15:25-0400 Respiratory rate 12 /min Linda Alvarez MD Work Phone: [facility] 07-01-2022 15:25-0400 SaO2% (BldA) [Mass fraction] 100 % Linda Alvarez MD Work Phone: [facility] 07-01-2022 15:25-0400 Systolic blood pressure 124 mm[Hg] Linda Alvarez MD Work Phone: [facility] Encounters Encounter Date Encounter Type Care Provider Facility Start: 10-10-2023 End: 10-11-2023 ambulatory LINDA ALVAREZ Facility:[facility] Start: 10-07-2023 ambulatory Linda Rollins Work Phone: [facility] [place] Start: 06-29-2023 Kassidy Jung JIG HAND .VENTILATION WORKER Work Phone: [facility] [place] Procedures Date Procedure Procedure Detail Performing Clinician Start: 06-24-2023 Urnls dip stick/tabl et rgnt auto w/o microscopy Debbie Townsend JIG HAND.VENTILATION WORKER Work Phone: Start: 10-11-2022 Ct abdomen & pelvis w/contrast material Linda Alvarez MD Work Phone: Start: 10-03-2021 Lipid 1996 panel - S shannon or Plasma Debbie Coshawn JIG HAND.VENTILATION WORKER Work Phone: Start: 09-04-2019 Adult depression screening assessment Linda Alvarez MD Work Phone: Plan of Treatment Date Care Activity Detail Author Start: 10-03-2026 Lipid 1996 panel - S shannon or Plasma Lipid Screening [facility] Start: 10-03-2026 Lipid panel Lipid Screening [facility] Start: 10-03-2026 LIPID SCREEN LIPID SCREEN [facility] Start: 10-11-2025 DIABETES SCREEN DIABETES SCREEN [facility] Start: 10-11-2025 Diabetes Screening Diabetes Screenin g [facility] Start: 07-06-2025 DIABETES SCREEN DIABETES SCREEN [facility] Start: 10-03-2024 DIABETES SCREEN DIABETES SCREEN [facility] Start: 09-10-2024 HPV TESTING HPV TESTING [facility] Start: 09-10-2024 PAP TESTING PAP TESTING [facility] Start: 09-10-2024 Screening for malign ant neoplasm of cervix [facility] Start: 11-12-2023 ANNUAL PCP TEAM COMPUTATIONAL SCIENCES PROFESSOR SHIMA DISEASE VISIT ANNUAL PCP TEAM CHRONIC DISEASE VISIT [facility] Start: 10-11-2023 ANNUAL PCP TEAM COMPUTATIONAL SCIENCES PROFESSOR SHIMA DISEASE VISIT ANNUAL PCP TEAM CHRONIC DISEASE VISIT [facility] Start: 10-07-2023 End: 01-06-2024 Thyrotropin [Units/volume] in Serum or Plasma TSH BLD Lab Routine Medication management Expected: 10/07/2023, Expires: 01/06/2024 [facility] Work Phone: Payers Date Payer Category Payer Medicaid [id number] 2021 Unknown [id number] 2021 Unknown [id number] 2012 Medicaid [employer] [id number] 2012-Present [phone] [address] [place] [address] Medicaid [id number] 2012 Medicaid [id number] Social History Date Type Detail Facility Start: 07-01-2022 Tobacco smoking stat us NHIS Ex-smoker [facility] End: 04-01-2002 History of tobacco use Current smoker [facility] End: 04-01-2002 History of tobacco use Cigarette Smoker [facility] Start: 10-03-2021 End: 06-24-2023 Alcohol intake Current non-drinker of alcohol (finding) [facility] Start: 09-11-2020 End: 11-11-2022 History SDOH Alcohol Frequency [address] [facility] Start: 09-11-2020 History SDOH Alcohol Std Drinks [address] [facility] Start: 09-11-2020 End: 11-11-2022 History SDOH Social Connections Phone [address] [facility] Start: 09-11-2020 End: 11-11-2022 History SDOH Social Connections Get Together [address] [facility] Start: 09-11-2020 End: 11-11-2022 History SDOH Social Connections Orthodoxy [address] [facility] Start: 09-11-2020 End: 11-11-2022 History SDOH Financial [address] [facility] Start: 09-04-2019 Education [address] [facility] Start: 1975 Sex Assigned At Not on file C [facility] Start: 07-01-2022 End: 06-24-2023 Cigarettes smoked current (pack per day) - Reported 1.[address] [facility] Start: 07-01-2022 Tobacco use and exposure Smoke less tobacco non-user [facility] Work Phone: Start: 07-01-2022 End: 11-11-2022 History SDOH Alcohol Std Drinks [address] [facility] Start: 06-21-2022 End: 07-01-2022 Exposure to SARS-CoV-2 (event) Not sure [facility] Work Phone: Start: 11-11-2022 History SDOH Physica l Activity MPS [address] [facility] Start: 11-11-2022 End: 06-24-2023 Social connection and isolation panel [facility] Do you belong to any clubs or organizations such as advent groups, unions, fraternal or athletic groups, or school groups? Yes [facility] Are you now , , , , never or living with a partner? [facility] How often to you hav e a drink containing alcohol? Never [facility] How many standard dr inks containing alcohol do you have on a typical day? Patient does not drink [facility] How hard is it for y ou to pay for the very basics like food, housing, medical care, and heating Not very hard [facility] Do you feel stress - tense, restless, nervous, or anxious, or unable to sleep at night because your mind is troubled all the time - these days [OSQ] Only a little [facility] (I/We) worried sandhya er (my/our) food would run out before (I/we) got money to buy more. Never true [facility] In the past 12 month s, was there a time when you were not able to pay the mortgage or rent on time? No [facility] Medical Equipment Procedure Code Equipment Code Equipment Origin al Text Equipment Identifier Dates Sys Ctrl Essure 2 Dev - [id number] Start: 04-20-2013 Clinical Notes 07-01-2022 to 10-07-2023 Telephone Encounter - Cecilia Owens OCCA - 06/30/2023 8:08 AM EDTPatient InstructionsCoDebbie escobar, VALENTE.VENTILATION WORKER - 06/24/2023 11:06 AM Leisa Ortiz LPN - 06/24/2023 10:54 AM EDT Note Date & Type Note Facility 10-07-2023 Note Patient Outreach (IN [facility]) ANNIE SAMUEL ([id number]) 1975 F Date Time Provider Department 10/07/23 GANTA, LINDA INT[facility] During your visit today, we recorded the following information about you: Allergies As of Date: 10/07/2023 Noted Allergy Reaction CATS 04/12/2006 CEPHALEXIN 09/22/2018 2 - Rash 4 - Hives 9 - Itching DUST 04/12/2006 SEASONAL ALLERGIES 01/03/2017 5 - Intolerance Comments: Sinus Congestion, Runny nose, and Watery Eyes Date Reviewed: 06/24/2023 Reviewed by: Debbie Townsend APRN.VENTILATION WORKER - Fully Assessed Visit Diagnosis:Medication management [Z79.899] Order(s):TSH BLD [SQTS] Order #: [id number] FUTURE Prescriptions as of 10/10/2023 - levothyroxine (SYNTHROID) 75 mcg tablet Take 1 tablet by mouth once daily. Take on an empty stomach. - albuterol HFA (VENTOLIN HFA) 90 mcg/actuation inhaler Inhale 2 Puffs as instructed every 4 hours as needed for wheezing/shortness of breath. - cholecalciferol, Vitamin D3, (VITAMIN D3) 1,250 mcg (50,000 unit) cap capsule Take 1 capsule by mouth one time a week. - CPAP Change settings: Auto PAP @ 5-9 cm of water with humidification. With Soft response AND EPR set to 3. Mask (per patient preference) optional chin strap (if indicated) , filters, heated tubing, humidifier and lifetime supplies. - CPAP Dream Wear small mask - Heated tubing. - Multivitamin Powd Take 1 Each by mouth once daily. Reliv Problem List As Of Date 10/07/2023 Noted Resolved Palpitation [R00.2] 02/18/2013 Dyspareunia [[id number]] 10/19/2014 Pelvic pain in female [R10.2] 10/19/2014 Dysmenorrhea [N94.6] 10/19/2014 Abnormal uterine bleeding [N93.9] 10/19/2014 Asthma [J45.909] 05/14/2015 Pelvic pain [R10.2] 01/03/2017 SOFI (obstructive sleep apnea) [G47.33] 02/11/2019 Panic attack [F41.0] 05/07/2019 Encounter Status:Closed by AIYANA LOPEZ on 10/10/23 [facility] 06-30-2023 Miscellaneous Notes Routing to oracle hyperion consultant as patient not been seen in office by covering providers. Patient has been identified by name and date of : Yes Patient phones for refill(s): Requested Prescriptions Pending Prescriptions Disp Refills levothyroxine (SYNTHROID) 75 mcg tablet 90 tablet 0 Sig: Take 1 tablet by mouth once daily. Take on an empty stomach. Date of last office visit in primary care: 11/11/2022 Date of next office visit in primary care: Visit date not found Last 2 Encounter Wt Readings: Date: Wt: 06/24/2023 87.1 kg (192 lb) 11/11/2022 83.5 kg (184 lb) Please advise. Thank you. FABIEN Schilling. documented in this encounter [facility] 06-24-2023 Note HNO ID: [id number] Author: Debbie Townsend APRN.VENTILATION WORKER Service: ? Author Type: Nurse Practitioner Type: Progress Notes Filed: 06/24/2023 2:48 PM Note Text: [facility]ON[facility]IVE [facility] Consultation requested by Dr. iLnda Alvarez MD for an opinion regarding bladder pressure and my final recommendations will be communicated back to the requesting physician by way of shared Medical record or letter via US mail. CHIEF COMPLAINT: pressure in the evening HISTORY OF PRESENT ILLNESS: (location, duration, severity, timing, modifying factors) 48 year old female with a history of SOFI, presents today for reports of lower abdominal pressure mainly in the evening, onset 2 years ago. Recently she reports some discomfort at the end of urination, she needs to push at the end of voiding to empty. +pressure at night She feels 99% improved since the onset of symptoms Grandmother with IC REVIEW OF SYSTEMS : Check if present: Lower urinary tract symptoms: Straining to void , Hesitancy , and Incomplete emptying Urgency incontinence: No Stress incontinence: Yes rare Number of pads/day: 0 pads Frequency: Daytime: able to hold for 2 hours Nightime: 1 UTI:Yes one Hematuria:Yes with UTI Stones:No Caffeine: 4 Caffeinated drinks per day Occupation: teacher Total fluid intake: BIOLOGY RESEARCH ASSISTANT: Gynec: G 2, P 2 Vaginal delivery:Yes Hysterectomy:No Sexually active: Yes Dyspareunia: Yes at times due to dryness Post-menopause:No Postmenopausal bleeding:Not applicable Feeling of vaginal bulge: No GI: Constipation: Yes in the past Fecal incontinence:No NEURO: Weakness, balance problemsno weakness, no balance deficits, no coordination deficits Lumbosacral disc disease: No GENERAL REVIEW OF SYSTEMS GENERAL: negative for malaise, significant weight loss and fever SKIN: Negative for lesions, rash, and itching. RESPIRATORY: Negative for cough and shortness of breath CARDIOVASCULAR: Negative for chest pain or UT Taking a blood thinner? NO GI: Positive for constipation GENITOURINARY: hesitancy, slow stream ENDOCRINE: Positive for thyroid issues NEURO: Negative for numbness, tingling, tremors MUSCULOSKELETAL: Negative for joint pain or swelling BLOOD/LYMPHATIC: No easy bleeding, easy bruising, transfusion Hx PSYCH: Negative for depression or anxiety. ALLERGIES: Cats, Cephalexin, Dust, and Seasonal Allergies PHYSICAL EXAM: FEMALE Vital signs: Ht 162.6 cm (5' 4 ) Wt 87.1 kg (192 lb) LMP 10/23/2022 (Approximate) BMI 32.96 kg/m? General Appearance: Normal, No acute distress, well nourished Psych:No signs of depression, anxiety, or agitation Neuro: Gait normal: Yes SKIN/LYMPH: No rash, lesions Respiratory: Normal, no labored breathing Cardiovascular:No extremity swelling, varices, edema, pallor, or erythema Gastrointestinal: - Liver/spleen: No abnormalities palpable - Hernia: None - Mass: None - Pain on palpation: None - Bladder/Kidney: No abnormalities palpable Extremities:Extremities normal. No deformities, edema, clubbing or skin discoloration. GENITALIA FEMALE EXAM: External Genitalia: Normal, no atrophy, no rash Urethral Meatus: Normal, no prolapse or caruncle Urethra: No mass, no tenderness and no diverticulum Urethral angle: >30 degrees Stress incontinence on exam: No Prolapse: Anterior:Stage 0, no prolapse Apical:Stage 0, no prolapse Posterior:Stage 0, no prolapse Cervix: Present without inflammation or discharge Levator tenderness: No Post Void Residual (bladder scan): 2 mL Urine dip: yes Component Latest Ref Rng AND Units 06/24/2023 GLUCOSE UA (POCT) Negative mg/dL Negative BILIRUBIN UA (POCT) Negative Negative KETONE UA (POCT) Negative mg/dL Negative SPECIFIC GRAVITY UA (POCT) 1.005 - 1.030 1.015 HEMOGLOBIN/BLOOD UA (POCT) Negative Trace-intact (A) PH UA (POCT) 4.5 - 8.0 8.0 PROTEIN UA (POCT) Negative mg/dL Negative UROBILINOGEN UA (POCT) Normal E.U./dL 0.2 NITRITE UA (POCT) Negative Negative LEUKOCYTES UA (POCT) Negative Negative COLOR UA (POCT) Yellow CLARITY UA (POCT) Clear IMPRESSION/PLAN: 1. Sensation of pressure in bladder area - ICD9: 596.89, ICD10: R39.89 (primary diagnosis) -PVR 2 ml -99% resolved since she scheduled the appointment -encouraged bowel regulation -discussed bladder irritants 2. Constipation, unspecified constipation type - ICD9: 564.00, ICD10: K59.00 -strict bowel regulation -negative pelvic exam Debbie Townsend APRN.CNP Follow up as needed [facility] 06-24-2023 Instructions Debbie Townsend APRN.CNP - 06/24/2023 11:35 AM EDT Bowel regulation documented in this encounter [facility] 06-24-2023 History of Present illness Narrative [facility] RECONSTRUCTIVE [facility] Consultation requested by Dr. Linda Alvarez MD for an opinion regarding bladder pressure and my final recommendations will be communicated back to the requesting physician by way of shared Medical record or letter via US mail. CHIEF COMPLAINT: pressure in the evening HISTORY OF PRESENT ILLNESS: (location, duration, severity, timing, modifying factors) 48 year old female with a history of SOFI, presents today for reports of lower abdominal pressure mainly in the evening, onset 2 years ago. Recently she reports some discomfort at the end of urination, she needs to push at the end of voiding to empty. +pressure at night She feels 99% improved since the onset of symptoms Grandmother with IC REVIEW OF SYSTEMS : Check if present: Lower urinary tract symptoms: Straining to void , Hesitancy , and Incomplete emptying Urgency incontinence: No Stress incontinence: Yes rare Number of pads/day: 0 pads Frequency: Daytime: able to hold for 2 hours Nightime: 1 UTI:Yes one Hematuria:Yes with UTI Stones:No Caffeine: 4 Caffeinated drinks per day Occupation: teacher Total fluid intake: BIOLOGY RESEARCH ASSISTANT: Gynec: G 2, P 2 Vaginal delivery:Yes Hysterectomy:No Sexually active: Yes Dyspareunia: Yes at times due to dryness Post-menopause:No Postmenopausal bleeding:Not applicable Feeling of vaginal bulge: No GI: Constipation: Yes in the past Fecal incontinence:No NEURO: Weakness, balance problemsno weakness, no balance deficits, no coordination deficits Lumbosacral disc disease: No GENERAL REVIEW OF SYSTEMS GENERAL: negative for malaise, significant weight loss and fever SKIN: Negative for lesions, rash, and itching. RESPIRATORY: Negative for cough and shortness of breath CARDIOVASCULAR: Negative for chest pain or UT Taking a blood thinner? NO GI: Positive for constipation GENITOURINARY: hesitancy, slow stream ENDOCRINE: Positive for thyroid issues NEURO: Negative for numbness, tingling, tremors MUSCULOSKELETAL: Negative for joint pain or swelling BLOOD/LYMPHATIC: No easy bleeding, easy bruising, transfusion Hx PSYCH: Negative for depression or anxiety. ALLERGIES: Cats, Cephalexin, Dust, and Seasonal Allergies PHYSICAL EXAM: FEMALE Vital signs: Ht 162.6 cm (5' 4 ) Wt 87.1 kg (192 lb) LMP 10/23/2022 (Approximate) BMI 32.96 kg/m General Appearance: Normal, No acute distress, well nourished Psych:No signs of depression, anxiety, or agitation Neuro: Gait normal: Yes SKIN/LYMPH: No rash, lesions Respiratory: Normal, no labored breathing Cardiovascular:No extremity swelling, varices, edema, pallor, or erythema Gastrointestinal: - Liver/spleen: No abnormalities palpable - Hernia: None - Mass: None - Pain on palpation: None - Bladder/Kidney: No abnormalities palpable Extremities:Extremities normal. No deformities, edema, clubbing or skin discoloration. GENITALIA FEMALE EXAM: External Genitalia: Normal, no atrophy, no rash Urethral Meatus: Normal, no prolapse or caruncle Urethra: No mass, no tenderness and no diverticulum Urethral angle: >30 degrees Stress incontinence on exam: No Prolapse: Anterior:Stage 0, no prolapse Apical:Stage 0, no prolapse Posterior:Stage 0, no prolapse Cervix: Present without inflammation or discharge Levator tenderness: No Post Void Residual (bladder scan): 2 mL Urine dip: yes Component Latest Ref Rng & Units 06/24/2023 GLUCOSE UA (POCT) Negative mg/dL Negative BILIRUBIN UA (POCT) Negative Negative KETONE UA (POCT) Negative mg/dL Negative SPECIFIC GRAVITY UA (POCT) 1.005 - 1.030 1.015 HEMOGLOBIN/BLOOD UA (POCT) Negative Trace-intact (A) PH UA (POCT) 4.5 - 8.0 8.0 PROTEIN UA (POCT) Negative mg/dL Negative UROBILINOGEN UA (POCT) Normal E.U./dL 0.2 NITRITE UA (POCT) Negative Negative LEUKOCYTES UA (POCT) Negative Negative COLOR UA (POCT) Yellow CLARITY UA (POCT) Clear IMPRESSION/PLAN: 1. Sensation of pressure in bladder area - ICD9: 596.89, ICD10: R39.89 (primary diagnosis) -PVR 2 ml -99% resolved since she scheduled the appointment -encouraged bowel regulation -discussed bladder irritants 2. Constipation, unspecified constipation type - ICD9: 564.00, ICD10: K59.00 -strict bowel regulation -negative pelvic exam Debbie Townsend APRN.CNP Follow up as needed documented in this encounter [facility] 06-24-2023 Nurse Note Bladder scan obtained 2 ml of urine documented in this encounter [facility] 02-05-2023 Note Patient Outreach (IN [facility]) ANNIE SAMUEL ([id number]) 1975 F Date Time Provider Department 02/05/23 LINDA ALVAREZ During your visit today, we recorded the following information about you: Allergies As of Date: 02/05/2023 Noted Allergy Reaction CATS 04/12/2006 CEPHALEXIN 09/22/2018 2 - Rash 4 - Hives 9 - Itching DUST 04/12/2006 SEASONAL ALLERGIES 01/03/2017 5 - Intolerance Comments: Sinus Congestion, Runny nose, and Watery Eyes Date Reviewed: 11/11/2022 Reviewed by: Justina Mahmood LPN - Fully Assessed Visit Diagnosis:Encounter for screening mammogram for breast cancer [Z12.31] Order(s):[facility] SCREENING [[id number]] Order #: [id number] FUTURE Prescriptions as of 02/10/2023 - levothyroxine (SYNTHROID) 75 mcg tablet Take 1 tablet by mouth daily on an empty stomach. - albuterol HFA (VENTOLIN HFA) 90 mcg/actuation inhaler Inhale 2 Puffs as instructed every 4 hours as needed for wheezing/shortness of breath. - cholecalciferol, Vitamin D3, (VITAMIN D3) 1,250 mcg (50,000 unit) cap capsule Take 1 capsule by mouth one time a week. - CPAP Change settings: Auto PAP @ 5-9 cm of water with humidification. With Soft response AND EPR set to 3. Mask (per patient preference) optional chin strap (if indicated) , filters, heated tubing, humidifier and lifetime supplies. - CPAP Dream Wear small mask - Heated tubing. - Multivitamin Powd Take 1 Each by mouth once daily. Reliv Problem List As Of Date 02/05/2023 Noted Resolved Palpitation [R00.2] 02/18/2013 Dyspareunia [FBE5788] 10/19/2014 Pelvic pain in female [R10.2] 10/19/2014 Dysmenorrhea [N94.6] 10/19/2014 Abnormal uterine bleeding [N93.9] 10/19/2014 Asthma [J45.909] 05/14/2015 Pelvic pain [R10.2] 01/03/2017 SOFI (obstructive sleep apnea) [G47.33] 02/11/2019 Panic attack [F41.0] 05/07/2019 Encounter Status:Closed by SUMIT LOPEZUSER on 02/10/23 [facility] 02-03-2023 Miscellaneous Notes Patient has been identified by name and date of : No Patient phones for refill(s): Requested Prescriptions Pending Prescriptions Disp Refills levothyroxine (SYNTHROID) 75 mcg tablet [Pharmacy Med Name: Levothyroxine Sodium 75mcg Tablet] 90 tablet 1 Sig: Take 1 tablet by mouth daily on an empty stomach. Date of last office visit in primary care: 11/11/22 Last 2 Encounter Wt Readings: Date: Wt: 11/11/2022 83.5 kg (184 lb) 10/11/2022 85.7 kg (189 lb) Previous labs/tests for medication: Thyroid: TSH Date Value 07/06/2022 2.440 mIU/L 10/03/2021 3.400 uU/mL Please advise. Thank you. Justina Mahmood LPN documented in this encounter [facility] 11-11-2022 Note HNO ID: [id number] Author: Linda Alvarez MD Service: ? Author Type: Physician Type: Progress Notes Filed: 11/11/2022 12:57 PM Note Text: Reason for Visit Patient presents with: Follow Up: abdomen pain follow up-improved Annie Samuel is a 47 year old female who presents here today for Above Complaints.. Health Maintenance HEPATITIS B(1 of 3 - 3-dose series) COVID-19 VACCINE(1) PNEUMOCOCCAL(1 - PCV) SPIROMETRY DTAP,TDAP,TD(1 - Tdap) MAMMOGRAM COLORECTAL CANCER SCREENING HPI Here for follow up for the abdominal pain. Had ct scan which was normal and also seen the surgeon who did not think anything acute surgically was going on with the patient. Currently no pain. Mild intermittent asthma uses the inhaler at least a couple times a year. Refused the pneumonia shot She complains of dysyria , ct showed bladder thickening. Checking ua and consult to urology planned. No problem-specific Assessment AND Plan notes found for this encounter. PAST MEDICAL HISTORY Diagnosis Date Dysthymic disorder Depression (non-psychotic) Infectious mononucleosis 1993,96,99 SOFI (obstructive sleep apnea) D[facility] Palpitations Unspecified hypothyroidism Hypothyroidism/ PAST SURGICAL HISTORY Procedure Laterality Date ESSURE 2013 PAST SURGICAL HISTORY OF deviated septum TONSILLECTOMY AND ADENOIDECTOMY FAMILY HISTORY Problem Relation Age of Onset Thyroid Mother Lipids Father Hypertension Father No Known Problems Brother Thyroid Maternal Grandmother Alzheimer's Disease Maternal Grandfather Psychiatry Maternal Grandfather dementia Cancer Paternal Grandmother lung Cancer Paternal Grandfather Allergies Son Asthma Son other (Adopted) Son other (Adopted) Son Social History Tobacco Use Smoking status: Former Packs/day: 1.50 Years: 12.00 Pack years: 18.00 Types: Cigarettes Quit date: 04/01/2002 Years since quittin.6 Smokeless tobacco: Never Vaping Use Vaping Use: Never used Substance Use Topics Alcohol use: No Drug use: No Past medical history, appointments, medications, allergies reviewed. Pertinent Lab/Diagnostic Studies are reviewed and discussed today Current Outpatient Medications: albuterol HFA (VENTOLIN HFA) 90 mcg/actuation inhaler levothyroxine (SYNTHROID) 75 mcg tablet cholecalciferol, Vitamin D3, (VITAMIN D3) 1,250 mcg (50,000 unit) cap capsule CPAP CPAP Multivitamin Powd Review of Systems CONSTITUTIONAL: No fevers, chills night sweats, unintended weight loss CARDIOVASCULAR: No chest pain, dyspnea, palpitations, orthopnea, PND, ankle edema. PULM: No dyspnea, unexplained cough. GI: No dysphagia/odynophagia, problematic reflux, constipation, diarrhea, changes in stool habits, hematochezia, melena. : No new urinary complaints, including dysuria, gross hematuria or pyuria. NEURO: No new balance problems, peripheral weakness/paresthesias or numbness of concern. Physical Exam BP 122/62 (BP Site: Left Arm, BP Position: Sitting, BP Cuff Size: Large Adult) Pulse 76 Temp 37.3 ?C (99.2 ?F) Resp 12 Ht 162.6 cm (5' 4 ) Wt 83.5 kg (184 lb) LMP 10/23/2022 (Approximate) SpO2 99% BMI 31.58 kg/m? General appearance: Well appearing, alert, in no acute distress, well nourished. Skin: Skin color, texture, turgor normal, no suspicious rashes or lesions Head: Normocephalic, no masses, lesions, tenderness or abnormalities Eyes: Anicteric sclera. Pupils are equally round and reactive to light. Extraocular movements are intact. Lungs: Lungs clear to auscultation. No wheezing, rhonchi, rales Heart: RRR without murmur, gallop, or rubs. Extremities: No deformities, edema, skin discoloration, clubbing or cyanosis. Good capillary refill. ASSESSMENT/PLAN: 1. Asthma, unspecified asthma severity, unspecified whether complicated, unspecified whether persistent - ICD9: 493.90, ICD10: J45.909 (primary diagnosis) Mild intermittent Asthma stable - Avoidance of triggers recommended 2. Dysuria - ICD9: 788.1, ICD10: R30.0 acute - Patient education for prevention given - UA DIP, URINE (POC) 3. Bladder wall thickening - ICD9: 596.89, ICD10: N32.89 - CONSULT TO UROLOGY Linda Alvarez MD [facility] 11-11-2022 History of Present illness Narrative Reason for Visit Patient presents with: Follow Up: abdomen pain follow up-improved Annie Samuel is a 47 year old female who presents here today for Above Complaints.. Health Maintenance HEPATITIS B(1 of 3 - 3-dose series) COVID-19 VACCINE(1) PNEUMOCOCCAL(1 - PCV) SPIROMETRY DTAP,TDAP,TD(1 - Tdap) MAMMOGRAM COLORECTAL CANCER SCREENING HPI Here for follow up for the abdominal pain. Had ct scan which was normal and also seen the surgeon who did not think anything acute surgically was going on with the patient. Currently no pain. Mild intermittent asthma uses the inhaler at least a couple times a year. Refused the pneumonia shot She complains of dysyria , ct showed bladder thickening. Checking ua and consult to urology planned. No problem-specific Assessment & Plan notes found for this encounter. PAST MEDICAL HISTORY Diagnosis Date Dysthymic disorder Depression (non-psychotic) Infectious mononucleosis 1993,96,99 SOFI (obstructive sleep apnea) DME [facility] Palpitations Unspecified hypothyroidism Hypothyroidism/ PAST SURGICAL HISTORY Procedure Laterality Date ESSURE 2012 PAST SURGICAL HISTORY OF deviated septum TONSILLECTOMY & ADENOIDECTOMY <AGE 14 FAMILY HISTORY Problem Relation Age of Onset Thyroid Mother Lipids Father Hypertension Father No Known Problems Brother Thyroid Maternal Grandmother Alzheimer's Disease Maternal Grandfather Psychiatry Maternal Grandfather dementia Cancer Paternal Grandmother lung Cancer Paternal Grandfather Allergies Son Asthma Son other (Adopted) Son other (Adopted) Son Social History Tobacco Use Smoking status: Former Packs/day: 1.50 Years: 12.00 Pack years: 18.00 Types: Cigarettes Quit date: 04/01/2002 Years since quittin.6 Smokeless tobacco: Never Vaping Use Vaping Use: Never used Substance Use Topics Alcohol use: No Drug use: No Past medical history, appointments, medications, allergies reviewed. Pertinent Lab/Diagnostic Studies are reviewed and discussed today Current Outpatient Medications: albuterol HFA (VENTOLIN HFA) 90 mcg/actuation inhaler levothyroxine (SYNTHROID) 75 mcg tablet cholecalciferol, Vitamin D3, (VITAMIN D3) 1,250 mcg (50,000 unit) cap capsule CPAP CPAP Multivitamin Powd Review of Systems CONSTITUTIONAL: No fevers, chills night sweats, unintended weight loss CARDIOVASCULAR: No chest pain, dyspnea, palpitations, orthopnea, PND, ankle edema. PULM: No dyspnea, unexplained cough. GI: No dysphagia/odynophagia, problematic reflux, constipation, diarrhea, changes in stool habits, hematochezia, melena. : No new urinary complaints, including dysuria, gross hematuria or pyuria. NEURO: No new balance problems, peripheral weakness/paresthesias or numbness of concern. Physical Exam BP 122/62 (BP Site: Left Arm, BP Position: Sitting, BP Cuff Size: Large Adult) Pulse 76 Temp 37.3 C (99.2 F) Resp 12 Ht 162.6 cm (5' 4 ) Wt 83.5 kg (184 lb) LMP 10/23/2022 (Approximate) SpO2 99% BMI 31.58 kg/m General appearance: Well appearing, alert, in no acute distress, well nourished. Skin: Skin color, texture, turgor normal, no suspicious rashes or lesions Head: Normocephalic, no masses, lesions, tenderness or abnormalities Eyes: Anicteric sclera. Pupils are equally round and reactive to light. Extraocular movements are intact. Lungs: Lungs clear to auscultation. No wheezing, rhonchi, rales Heart: RRR without murmur, gallop, or rubs. Extremities: No deformities, edema, skin discoloration, clubbing or cyanosis. Good capillary refill. ASSESSMENT/PLAN: 1. Asthma, unspecified asthma severity, unspecified whether complicated, unspecified whether persistent - ICD9: 493.90, ICD10: J45.909 (primary diagnosis) Mild intermittent Asthma stable - Avoidance of triggers recommended 2. Dysuria - ICD9: 788.1, ICD10: R30.0 acute - Patient education for prevention given - UA DIP, URINE (POC) 3. Bladder wall thickening - ICD9: 596.89, ICD10: N32.89 - CONSULT TO UROLOGY Linda Alvarez MD documented in this encounter [facility] 11-04-2022 Miscellaneous Notes Patient has been identified by name and date of : No Patient phones for refill(s): Requested Prescriptions Pending Prescriptions Disp Refills albuterol HFA (VENTOLIN HFA) 90 mcg/actuation inhaler Sig: Inhale 2 Puffs as instructed every 4 hours as needed for wheezing/shortness of breath. Date of last office visit in primary care: 10/11/22 Last 2 Encounter Wt Readings: Date: Wt: 10/11/2022 85.7 kg (189 lb) 10/11/2022 83 kg (183 lb) Previous labs/tests for medication: Not applicable Please advise. Thank you. Justina Mahmood LPN documented in this encounter [facility] 10-16-2022 Miscellaneous Notes Patient notified and has been seen by Surgeon. ----- Message from Linda Alvarez MD sent at 10/16/2022 7:27 AM EST ----- Some vague gall badder thickening Please help her set apt with surgery if she has already not done so. Regards, Linda Alvarez MD documented in this encounter [facility] 10-14-2022 Miscellaneous Notes Patient notified of below results, verbalized understanding. Shakira Crews LPN ----- Message from Linda Alvarez MD sent at 10/12/2022 1:10 PM EST ----- Labs are looking normal, awaiting the imaging studies Regards, Linda Alvarez MD documented in this encounter [facility] 10-11-2022 History of Present illness Narrative HISTORY AND PHYSICAL Annie Rashid Lizzie 1975 REFERRING PHYSICIAN: Linda Alvarez MD CHIEF COMPLAINT: Consult (Abdominal pain) HPI: The patient is a 47 year old female with a complaint of abdominal pain. The patient is noted episodic abdominal pain for some time. She is noted more significant complaints for the past 5 days. The patient notes her pain started Friday. She is noted nausea stomach pain and some increase with fatigue. She states she feels better when she is resting. She feels that it is worse in the morning and when she is sitting up or moving around. If she is lying in bed the pain is not as bad. She states that is woken up from her sleep 1 time. She notes she feels bloated and gassy. She tried teri and digestive pills which really did not work. She states she occasionally has issues with constipation. She took a laxative had one harder and now somewhat looser stools but this did not improve her overall abdominal discomfort feelings. She notes no blood in her stools no black tarry stools and no mucus. She describes the pain at times as cramping at other times as sharp she notes it is diffuse and she cannot truly localize it but demonstrates a band over her mid abdomen. She notes that her appetite is somewhat decreased and she notes that eating increases her pain but she still somewhat eating though she has somewhat fear of eating. She states at times the pain has been in the right upper quadrant when it is palpated and does not radiate other times she notes the pain to be in her midline. She takes a magnesium supplement to help with bowel movements she is on Synthroid. She notes no previous endoscopy. She notes procedures for tonsillectomy and a deviated septum and had an Essure performed. The patient was seen in urgent care yesterday urinalysis obtained which was unremarkable. She was referred to primary care and saw Dr. Alvarez this morning. Laboratory studies were obtained. CMP is still pending. CBC was unremarkable. CT scan of the abdomen pelvis was obtained. Report is pending I saw no acute abnormalities. The patient is being seen by me today at the request of Dr. Linda Alvarez MD for my opinion and advice regarding vague abdominal symptoms. PAST MEDICAL HISTORY Diagnosis Date Dysthymic disorder Depression (non-psychotic) Infectious mononucleosis 1993,, SOFI (obstructive sleep apnea) DME [facility] Palpitations Unspecified hypothyroidism Hypothyroidism/ PAST SURGICAL HISTORY Procedure Laterality Date ESSURE 2012 PAST SURGICAL HISTORY OF deviated septum TONSILLECTOMY & ADENOIDECTOMY <AGE 14 Current Outpatient Medications Medication Sig iv contrast (will be provided with radiology test) CT ABD/PEL -Inject, intravenously, once for 1 dose.No IV access, insert saline lock prior to the beginning of sedation, infusion, injection of imaging exam. Discontinue saline lock post exam. If Pt. has a central line or IVAD, may access for administration according to line specific nursing protocol. Once exam is complete flush line and de-access according to line specific nursing protocol in the CT contrast administration guidelines link. enteric contrast (will be provided with radiology test) For CT ABD/PEL W IVCON Routine order Administer, As Directed One Time Only, via Oral, Rectal, both Oral and Rectal, Enteric Tube, Stoma or Indwelling Catheter, Enteric Contrast as designated per enteric contrast guidelines levothyroxine (SYNTHROID) 75 mcg tablet Take 1 tablet by mouth once daily. Take on empty stomach. For Thyroid cholecalciferol, Vitamin D3, (VITAMIN D3) 1,250 mcg (50,000 unit) cap capsule Take 1 capsule by mouth one time a week. CPAP Change settings: Auto PAP @ 5-9 cm of water with humidification. With Soft response & EPR set to 3. Mask (per patient preference) optional chin strap (if indicated) , filters, heated tubing, humidifier and lifetime supplies. CPAP Dream Wear small mask - Heated tubing. albuterol HFA (VENTOLIN HFA) 90 mcg/actuation inhaler Inhale 2 Puffs as instructed every 4 hours as needed for Wheezing/Shortness of Breath. Multivitamin Powd Take 1 Each by mouth once daily. Reliv No current facility-administered medications for this visit. ALLERGIES: Cats, Cephalexin, Dust, and Seasonal Allergies PERSONAL HISTORY: Social History Tobacco Use Smoking status: Former Packs/day: 1.50 Years: 12.00 Pack years: 18.00 Types: Cigarettes Quit date: 04/01/2002 Years since quittin.5 Smokeless tobacco: Never Vaping Use Vaping Use: Never used Substance Use Topics Alcohol use: No Drug use: No FAMILY HISTORY: FAMILY HISTORY Problem Relation Age of Onset Thyroid Mother Lipids Father Hypertension Father No Known Problems Brother Thyroid Maternal Grandmother Alzheimer's Disease Maternal Grandfather Psychiatry Maternal Grandfather dementia Cancer Paternal Grandmother lung Cancer Paternal Grandfather Allergies Son Asthma Son other (Adopted) Son other (Adopted) Son REVIEW OF SYMPTOMS: The review of systems data was entered by the nurse and reviewed by vt Nursing Notes: Anna Chappell RN 10/11/2022 12:57 PM Signed REVIEW OF SYSTEMS: General: The patient NOTES fatigue, denies weight loss, denies weight gain, denies feeling hot, and denies feelings of cold. Eyes: The patient denies glaucoma, denies eye injury/surgery, wears glasses or contacts. Ear/Nose/Throat: The patient denies allergies, denies hayfever, denies ear infections, and denies bloody noses. Cardiovascular: The patient denies chest pain, denies heart disease, denies high blood pressure,denies cardiac stent, denies prior heart attack, denies irregular heart beat, denies high cholesterol, denies poor circulation, denies heart failure, other cardiac issues, denies claudication, NOTES cold feet, denies peripheral arterial stent. Respiratory: The patient denies tuberculosis, denies pneumonia, denies frequent cough, denies pulmonary embolism, denies shortness of breath, and denies coughing up blood. Gastrointestinal: The patient denies difficulty swallowing, denies acid reflux, denies ulcers, denies vomiting, denies jaundice/hepatitis, denies gallbladder problems, denies black or tarry stools, denies hemorrhoids, denies bleeding from rectum, denies diverticulitis, denies constipation, denies diarrhea, denies loss of stool control, and denies hernias. Kidney/Bladder: The patient denies kidney stones, denies urine infections, and denies bloody urine. Skin: The patient denies a history of skin cancer, denies bleeding/changing moles, and denies a history of skin rash. Neurologic: The patient denies a history of epilepsy/convulsions, denies headaches, denies head/spinal injuries, and denies stroke/TIA. Psychiatric: The patient denies psychiatric medications, denies depression, and denies voices, denies substance abuse. Endocrine: The patient NOTES thyroid disorders, denies diabetes, and denies hormonal problems. Hematologic: The patient NOTES a history of bruising, denies bleeding, and denies anemia, denies blood clots. Infections: The patient denies a history of measles and mumps, denies rheumatic fever, and denies sexually transmitted diseases. Musculoskeletal: The patient denies back pain/injury, denies back problems, NOTES sciatica, denies knee/foot trouble, denies arthritis, or denies gout. When was patient's last Mammogram screening? NONE Last Colonoscopy: NONE Anna Chappell RN PHYSICAL EXAMINATION: General: The patient is 47 year old female, well nourished, well hydrated in no acute distress. The patient is oriented to time, place, and person. VITALS: Blood pressure 120/70, pulse 100, temperature 37.4 C (99.3 F), height 162.6 cm (5' 4 ), weight 85.7 kg (189 lb), last menstrual period 09/24/2022, SpO2 97 %. HEENT: Normal cephalic, ataumatic, pupils are equally round, sclera are anicteric, mucous membranes are moist, oropharynx is clear. Neck has no masses, asymmetry or lymphadenopathy. Thyroid is unremarkable. Respiratory: Clear to auscultation and percussion. Normal respiratory excursion and pattern. Cardiac: Examination is regular rate and rhythm. Abdominal exam: Soft, nontender, with no palpable masses. No hepatosplenomegaly. No palpable hernias. Rectal exam: exam deferred Extremities: no clubbing, cyanosis or edema. No adenopathy. Other: LABORATORY VALUES: As Noted RADIOLOGIC STUDIES: As Noted Assessment IMPRESSION: Vague abdominal symptoms no obvious localizing or pathologic findings on exam CBC or CT scan PLAN: I reassured the patient I did not feel she had acute cholecystitis and saw no signs of appendicitis. I sent no specific abnormalities on the CT scan. Discussed the possibility of viral gastroenteritis. Recommended she attempt to drink liquids as possible and to present to the emergency department if her symptoms worsen Diagnoses: (R10.31) Right lower quadrant pain My findings have been communicated to Dr. Linda Alvarez MD via shared medical record. This note will be forwarded to Dr. iLnda Alvarez MD. Return to Clinic: The patient is instructed to follow-up with me as needed. Leandro Bolanos MD documented in this encounter [facility] 10-11-2022 History of Present illness Narrative Radiology Service Progress Note DATE OF SERVICE: October 11, 2022 TIME: 2:59 PM PATIENT IDENTITY VERIFICATION COMPLETED USING TWO (2) STANDARD IDENTIFIERS: Name and Date of confirmed by patient verbally. FALL SCREENING: Has the patient had 2 falls in the last year or 1 fall with injury or currently using an Ambulatory Assistive Device (Walker, Cane, Wheelchair, Crutches, etc.)? No PATIENT GENDER DATA: Female. status: : No status: NO. PATIENT RELEVANT IMPLANT DATA REVIEWED: Yes ALLERGIES: Reviewed and unchanged CONTRAST ALLERGY: NO. EXAM: CT -CONTRAST INDUCED NEPHROPATHY RISK FACTORS: Not applicable CREATININE: Creatinine Date Value Ref Range Status 07/06/2022 0.67 0.58 - 0.96 mg/dL Final 10/03/2021 0.67 0.58 - 0.96 mg/dL Final 07/13/2019 0.68 0.58 - 0.96 mg/dL Final Estimated Glomerular Filtration Rate Date Value Ref Range Status 07/06/2022 110 >=60 mL/min/1.73m Final Comment: Estimated Glomerular Filtration Rate (eGFR) is calculated using the 2020 CKD-EPI creatinine equation. This equation utilizes serum creatinine, sex, and age as parameters. The creatinine assay has traceable calibration to isotope dilution-mass spectrometry. Refer to KDIGO guidelines for clinical interpretation. In patients with unstable renal function, e.g. those with acute kidney injury, the eGFR may not accurately reflect actual GFR. eGFR- Date Value Ref Range Status 10/03/2021 >60 Final P.O.C.T. RESULTS: POC done: Yes, See Lab Tab October 11, 2022 TREATMENT: N/A PERIPHERAL IV DATA: Ambulatory: A peripheral IV was started in the Left antecubital site with a Angio cath: 22 gauge. RADIOLOGY DEPARTMENT: CT; Exam(s) Completed: Abdomen/Pelvis SIGNATURE: RT Nell(R) PATIENT NAME: Annie Samuel DATE: October 11, 2022 TIME: 2:59 PM documented in this encounter [facility] 10-11-2022 Nurse Note REVIEW OF SYSTEMS: General: The patient NOTES fatigue, denies weight loss, denies weight gain, denies feeling hot, and denies feelings of cold. Eyes: The patient denies glaucoma, denies eye injury/surgery, wears glasses or contacts. Ear/Nose/Throat: The patient denies allergies, denies hayfever, denies ear infections, and denies bloody noses. Cardiovascular: The patient denies chest pain, denies heart disease, denies high blood pressure,denies cardiac stent, denies prior heart attack, denies irregular heart beat, denies high cholesterol, denies poor circulation, denies heart failure, other cardiac issues, denies claudication, NOTES cold feet, denies peripheral arterial stent. Respiratory: The patient denies tuberculosis, denies pneumonia, denies frequent cough, denies pulmonary embolism, denies shortness of breath, and denies coughing up blood. Gastrointestinal: The patient denies difficulty swallowing, denies acid reflux, denies ulcers, denies vomiting, denies jaundice/hepatitis, denies gallbladder problems, denies black or tarry stools, denies hemorrhoids, denies bleeding from rectum, denies diverticulitis, denies constipation, denies diarrhea, denies loss of stool control, and denies hernias. Kidney/Bladder: The patient denies kidney stones, denies urine infections, and denies bloody urine. Skin: The patient denies a history of skin cancer, denies bleeding/changing moles, and denies a history of skin rash. Neurologic: The patient denies a history of epilepsy/convulsions, denies headaches, denies head/spinal injuries, and denies stroke/TIA. Psychiatric: The patient denies psychiatric medications, denies depression, and denies voices, denies substance abuse. Endocrine: The patient NOTES thyroid disorders, denies diabetes, and denies hormonal problems. Hematologic: The patient NOTES a history of bruising, denies bleeding, and denies anemia, denies blood clots. Infections: The patient denies a history of measles and mumps, denies rheumatic fever, and denies sexually transmitted diseases. Musculoskeletal: The patient denies back pain/injury, denies back problems, NOTES sciatica, denies knee/foot trouble, denies arthritis, or denies gout. When was patient's last Mammogram screening? NONE Last Colonoscopy: NONE Anna Chappell RN documented in this encounter [facility] 10-11-2022 History of Present illness Narrative Reason for Visit Patient presents with: Follow Up: express care- stomach pains x 6 days Annie Samuel is a 47 year old female who presents here today for Above Complaints.. Health Maintenance HEPATITIS B(1 of 3 - 3-dose series) COVID-19 VACCINE(1) PNEUMOCOCCAL(1 - PCV) SPIROMETRY DTAP,TDAP,TD(1 - Tdap) MAMMOGRAM COLORECTAL CANCER SCREENING DEPRESSION ASSESSMENT HPI She was in the express care yesterday for below complaints and I have copy pasted them: HPI 47-year-old female presents for abdominal cramping and nausea for about 5 days. Patient states she has been having some intermittent abdominal cramping and nausea for the past 5 days. She has not had any vomiting or diarrhea. She thought she might be constipated, but has been having normal bowel movements. She denies any fevers or chills. States she cannot really localize the pain, states it is more of just a cramping. Sometimes worse after eating. She states when she sits up it is worse. When she lies flat it is better. She denies any urinary symptoms. No back pain. No abnormal vaginal bleeding or discharge. No concern for . Denies ever having pain like this in the past. She does still have her gallbladder and appendix. Patient wanted to go to work today but did not feel right. The pain is more cramping today than anything else . Denies having reflux, sore throat water brash. She could not sleep very well due to the pain , she has been more tired . Never had a colonoscopy or egd. Patient is not able to keep more fluid down. She got 32 ounces this morning. No problem-specific Assessment & Plan notes found for this encounter. PAST MEDICAL HISTORY Diagnosis Date Dysthymic disorder Depression (non-psychotic) Infectious mononucleosis 1993,, SOFI (obstructive sleep apnea) DME [facility] Palpitations Unspecified hypothyroidism Hypothyroidism/ PAST SURGICAL HISTORY Procedure Laterality Date ESSURE 2013 PAST SURGICAL HISTORY OF deviated septum TONSILLECTOMY & ADENOIDECTOMY <AGE 14 FAMILY HISTORY Problem Relation Age of Onset Thyroid Mother Lipids Father Hypertension Father No Known Problems Brother Thyroid Maternal Grandmother Alzheimer's Disease Maternal Grandfather Psychiatry Maternal Grandfather dementia Cancer Paternal Grandmother lung Cancer Paternal Grandfather Allergies Son Asthma Son other (Adopted) Son other (Adopted) Son Social History Tobacco Use Smoking status: Former Packs/day: 1.50 Years: 12.00 Pack years: 18.00 Types: Cigarettes Quit date: 04/01/2002 Years since quittin.5 Smokeless tobacco: Never Vaping Use Vaping Use: Never used Substance Use Topics Alcohol use: No Drug use: No Past medical history, appointments, medications, allergies reviewed. Pertinent Lab/Diagnostic Studies are reviewed and discussed today Current Outpatient Medications: levothyroxine (SYNTHROID) 75 mcg tablet cholecalciferol, Vitamin D3, (VITAMIN D3) 1,250 mcg (50,000 unit) cap capsule CPAP CPAP albuterol HFA (VENTOLIN HFA) 90 mcg/actuation inhaler Multivitamin Powd Review of Systems CONSTITUTIONAL: No fevers, chills night sweats, unintended weight loss CARDIOVASCULAR: No chest pain, dyspnea, palpitations, orthopnea, PND, ankle edema. PULM: No dyspnea, unexplained cough. GI: No dysphagia/odynophagia, problematic reflux, constipation, diarrhea, changes in stool habits, hematochezia, melena. : No new urinary complaints, including dysuria, gross hematuria or pyuria. NEURO: No new balance problems, peripheral weakness/paresthesias or numbness of concern. Physical Exam BP 126/70 (BP Site: Left Arm, BP Position: Sitting, BP Cuff Size: Large Adult) Pulse 88 Temp 37.2 C (98.9 F) Resp 12 Ht 162.6 cm (5' 4 ) Wt 83 kg (183 lb) LMP 09/24/2022 (Approximate) SpO2 97% BMI 31.41 kg/m General appearance: Well appearing, alert, in no acute distress, well nourished. Skin: Skin color, texture, turgor normal, no suspicious rashes or lesions Head: Normocephalic, no masses, lesions, tenderness or abnormalities Eyes: Anicteric sclera. Pupils are equally round and reactive to light. Extraocular movements are intact. Lungs: Lungs clear to auscultation. No wheezing, rhonchi, rales Heart: RRR without murmur, gallop, or rubs. Abdomen: soft, nondistended, with hyperactive bowel sounds, moderate RLQ tenderness jose roberto at the [place] point, no hepatosplenomegaly or masses, no rebound or guarding, abdominal bruit heard. ASSESSMENT/PLAN: 1. Right lower quadrant pain - ICD9: 789.03, ICD10: R10.31 (primary diagnosis) - CONSULT TO GENERAL SURGERY - CBC + DIFF - COMP METABOLIC PANEL 2. Infection in abdomen (HCC) - ICD9: 567.9, ICD10: K65.9 - CT ABD/PEL W IVCON Linda Alvarez MD documented in this encounter [facility] 07-12-2022 Miscellaneous Notes Left detailed message on secure [employer]. ----- Message from Linda Alvarez MD sent at 07/11/2022 3:23 PM EST ----- Annie, The celiac screen is negative The thyroid, magnesium , blood counts are good. Regards, Linda Alvarez MD documented in this encounter [facility] 07-01-2022 History of Present illness Narrative Reason for Visit Patient presents with: Recheck: thyroid, sleep apnea machine broke,deviated septum, palpations Annie Samuel is a 47 year old female who presents here today for Above Complaints.. Health Maintenance HEPATITIS B(1 of 3 - 3-dose series) COVID-19 VACCINE(1) PNEUMOCOCCAL(1 - PCV) SPIROMETRY DTAP,TDAP,TD(1 - Tdap) MAMMOGRAM DEPRESSION ASSESSMENT COLORECTAL CANCER SCREENING HPI Sleep apnea: she has been having some trouble with her sleep apnea machine humidifier. It broke and insurance does not cover it. She knows she has a deviated septum and thinks it would help a lot with breathing. She uses her machine on a regular basis, every night for around 6 hours and she thinks she benefits from it, she def sleeps better, she falls asleep taking a nap she was. Patient notes she snores a lot when she does not have it on. Insurance noted that supplies will be given every 5 years, it is very hard for her to use the machine when she gets dry the whole time. Hypothyroidism. She is doing well on her current dose of Synthroid. Denies fatigue, cold intolerance and swelling in feet. TSH recently checked and normal. She has been walking a lot to lose weight and noticed that clothes are looser but scales are higher. She has noticed palpitations recently. Randomly comes on. She does seem to need to have caffeine on a daily basis. She drinks 2-4 cups a day of coffee which medium.. has been sleeping well at night. She has been sleeping pretty good lately. Has been feeling better off gluten recently. She was asked to find out if her insurance will cover colonoscopy cancer screening No problem-specific Assessment & Plan notes found for this encounter. PAST MEDICAL HISTORY Diagnosis Date Dysthymic disorder Depression (non-psychotic) Infectious mononucleosis 1993,96,99 SOFI (obstructive sleep apnea) DME [facility] Palpitations Unspecified hypothyroidism Hypothyroidism/ PAST SURGICAL HISTORY Procedure Laterality Date ESSURE 2013 PAST SURGICAL HISTORY OF deviated septum TONSILLECTOMY & ADENOIDECTOMY <AGE 14 FAMILY HISTORY Problem Relation Age of Onset Thyroid Mother Lipids Father Hypertension Father No Known Problems Brother Thyroid Maternal Grandmother Alzheimer's Disease Maternal Grandfather Psychiatry Maternal Grandfather dementia Cancer Paternal Grandmother lung Cancer Paternal Grandfather Allergies Son Asthma Son other (Adopted) Son other (Adopted) Son Social History Tobacco Use Smoking status: Former Packs/day: 1.50 Years: 12.00 Pack years: 18.00 Types: Cigarettes Quit date: 04/01/2002 Years since quittin.2 Smokeless tobacco: Never Vaping Use Vaping Use: Never used Substance Use Topics Alcohol use: No Drug use: No Past medical history, appointments, medications, allergies reviewed. Pertinent Lab/Diagnostic Studies are reviewed and discussed today Current Outpatient Medications: levothyroxine (SYNTHROID) 75 mcg tablet cholecalciferol, Vitamin D3, (VITAMIN D3) 1,250 mcg (50,000 unit) cap capsule CPAP CPAP albuterol HFA (VENTOLIN HFA) 90 mcg/actuation inhaler Multivitamin Powd Review of Systems CONSTITUTIONAL: No fevers, chills night sweats, unintended weight loss CARDIOVASCULAR: No chest pain, dyspnea, palpitations, orthopnea, PND, ankle edema. PULM: No dyspnea, unexplained cough. GI: No dysphagia/odynophagia, problematic reflux, constipation, diarrhea, changes in stool habits, hematochezia, melena. : No new urinary complaints, including dysuria, gross hematuria or pyuria. NEURO: No new balance problems, peripheral weakness/paresthesias or numbness of concern. Physical Exam BP 124/62 (BP Site: Left Arm, BP Position: Sitting, BP Cuff Size: Large Adult) Pulse 78 Resp 12 Ht 162.6 cm (5' 4 ) Wt 84.4 kg (186 lb) LMP 11/23/2020 (Approximate) SpO2 100% BMI 31.93 kg/m General appearance: Well appearing, alert, in no acute distress, well nourished. Skin: Skin color, texture, turgor normal, no suspicious rashes or lesions Head: Normocephalic, no masses, lesions, tenderness or abnormalities Eyes: Anicteric sclera. Pupils are equally round and reactive to light. Extraocular movements are intact. Lungs: Lungs clear to auscultation. No wheezing, rhonchi, rales Heart: RRR without murmur, gallop, or rubs. Extremities: No deformities, edema, skin discoloration, clubbing or cyanosis. Good capillary refill. ASSESSMENT/PLAN: 1. Deviated nasal septum - ICD9: 470, ICD10: J34.2 (primary diagnosis) - CONSULT TO ENT 2. Palpitations - ICD9: 785.1, ICD10: R00.2 - TSH BLD - MAGNESIUM BLD - COMP METABOLIC PANEL 3. Diarrhea, unspecified type - ICD9: 787.91, ICD10: R19.7 - CELIAC SCREEN WITH REFLEX 4. Obstructive sleep apnea syndrome - ICD9: 327.23, ICD10: G47.33 - CPAP DEVICE, WITH HUMIDIFIER Linda Alvarez MD documented in this encounter [facility] Diagnosis Deviated nasal septum- Primary Palpitations Diarrhea, unspecified type Obstructive sleep apnea syndrome Obstructive sleep apnea (adult) (pediatric) [facility] Diagnosis Right lower quadrant pain- Primary Abdominal pain, right lower quadrant Infection in abdomen (HCC) Unspecified peritonitis [facility] Diagnosis Right lower quadrant pain Abdominal pain, right lower quadrant [facility] Diagnosis Asthma, unspecified asthma severity, unspecified whether complicated, unspecified whether persistent- Primary Dysuria Bladder wall thickening Other specified disorders of bladder SOFI (obstructive sleep apnea) Obstructive sleep apnea (adult) (pediatric) [facility] Diagnosis Sensation of pressure in bladder area- Primary Other specified disorders of bladder Constipation, unspecified constipation type [facility] Diagnosis Infection in abdomen (HCC) Unspecified peritonitis [facility] Diagnosis Medication management Encounter for long-term (current) use of other medications documented in this encounter [facility] for referral (narrative)* Diagnostic Procedure Only (Routine) - Pending Review Specialty Diagnoses / Procedures Referred By Soy rivera Referred To Contact [facility] Diagnoses Encounter for screening mammogram for breast cancer Procedures ANGELICA SCREENING SCREENING MAMMOGRAPHY BI 2-VIEW BREAST INC Linda Nava MD [address] [place] [address] [facility] [address] [place] [address] Referral ID Status Reason Start Date Expiration Date Visits Requested Visits Authorized [id number] Pending Review Auto-Generat ed Referral 02/20/2022 03/22/2023 [address] [facility] Reason for Referral Specialty Diagnoses / Procedures Referred By Contac t Referred To Contact Ent - Otolaryngology Diagnoses Deviated nasal septum Procedures CONSULT TO ENT OFFICE/OUTPATIENT [facility] 60-74 MINUTES Linda Alvarez MD [address] [place] [id number] Referral ID Status Reason Start Date Expiration Date Visits Requested Visits Authorized [id number] Pending Review PCP Requested Referral 2 07/01/2023 1 1 Specialty Diagnoses / Procedures Referred By Contac t Referred To Contact CT IMAGING Diagnoses Infection in abdomen (HCC) Procedures CT ABD/PEL W IVCON CT ABD & PELVIS W/CONTRAST Linda Alvarez MD [address] [place] [id number] [facility] Referral ID Status Reason Start Date Expiration Date V isits Requested Visits Authorized [id number] Closed Auto-Generate d Referral 10/11/2022 11/25/2022 2 2 Specialty Diagnoses / Procedures Referred By Contac t Referred To Contact General Surgery Diagnoses Right lower quadrant pain Procedures CONSULT TO GENERAL SURGERY OFFICE/OUTPATIENT [facility] 60-74 MINUTES Linda Alvarez MD [address] [place] [id number] Referral ID Status Reason Start Date Expiration Date V isits Requested Visits Authorized [id number] Closed PCP Requested Referral 10/11/2022 10/11/2023 1 1 Specialty Diagnoses / Procedures Referred By Contac t Referred To Contact Urology Diagnoses Bladder wall thickening Procedures CONSULT TO UROLOGY OFFICE/OUTPATIENT [facility] 60-74 MINUTES Linda Alvarez MD [address] [place] [id number] Referral ID Status Reason Start Date Expiration Date Visits Requested Visits Authorized [id number] Authorized PCP Requested Referral 11/11/2022 11/11/2023 1 1 Specialty Diagnoses / Procedures Referred By Soy t Referred To Contact CT IMAGING Diagnoses Infection in abdomen (HCC) Procedures CT ABD/PEL W IVCON CT ABD & PELVIS W/CONTRAST Linda Alvarez MD [address] [facility] [place] [address] [place] [id number] Summary Purpose Family History No Family History Records Found Advance Directives No Advanced Directives Records Found Additional Source Comments Source Comments (unrecognize d section and content) In the event this informatio n is protected by the Federal Confidentiality of Alcohol and Drug Abuse Patient Records regulations: The Federal rules restrict any use of the information to criminally investigate or prosecute any alcohol or drug abuse patient.[facility] the event this information is protected by the Federal Confidentiality of Alcohol and Drug Abuse Patient Records regulations: The Federal rules restrict any use of the information to criminally investigate or prosecute any alcohol or drug abuse patient.[facility] the event this information is protected by the Federal Confidentiality of Alcohol and Drug Abuse Patient Records regulations: The Federal rules restrict any use of the information to criminally investigate or prosecute any alcohol or drug abuse patient.[facility] the event this information is protected by the Federal Confidentiality of Alcohol and Drug Abuse Patient Records regulations: The Federal rules restrict any use of the information to criminally investigate or prosecute any alcohol or drug abuse patient.[facility] the event this information is protected by the Federal Confidentiality of Alcohol and Drug Abuse Patient Records regulations: The Federal rules restrict any use of the information to criminally investigate or prosecute any alcohol or drug abuse patient.[facility] the event this information is protected by the Federal Confidentiality of Alcohol and Drug Abuse Patient Records regulations: The Federal rules restrict any use of the information to criminally investigate or prosecute any alcohol or drug abuse patient.[facility] Center[facility] the event this information is protected by the Federal Confidentiality of Alcohol and Drug Abuse Patient Records regulations: The Federal rules restrict any use of the information to criminally investigate or prosecute any alcohol or drug abuse patient.[facility] Center[facility] the event this information is protected by the Federal Confidentiality of Alcohol and Drug Abuse Patient Records regulations: The Federal rules restrict any use of the information to criminally investigate or prosecute any alcohol or drug abuse patient.[facility] Center[facility] the event this information is protected by the Federal Confidentiality of Alcohol and Drug Abuse Patient Records regulations: The Federal rules restrict any use of the information to criminally investigate or prosecute any alcohol or drug abuse patient.[facility] Center[facility] the event this information is protected by the Federal Confidentiality of Alcohol and Drug Abuse Patient Records regulations: The Federal rules restrict any use of the information to criminally investigate or prosecute any alcohol or drug abuse patient.[facility] Center[facility] the event this information is protected by the Federal Confidentiality of Alcohol and Drug Abuse Patient Records regulations: The Federal rules restrict any use of the information to criminally investigate or prosecute any alcohol or drug abuse patient.[facility] Center[facility] the event this information is protected by the Federal Confidentiality of Alcohol and Drug Abuse Patient Records regulations: The Federal rules restrict any use of the information to criminally investigate or prosecute any alcohol or drug abuse patient.[facility] Center[facility] the event this information is protected by the Federal Confidentiality of Alcohol and Drug Abuse Patient Records regulations: The Federal rules restrict any use of the information to criminally investigate or prosecute any alcohol or drug abuse patient.[facility] CenterIn the event this information is protected by the Federal Confidentiality of Alcohol and Drug Abuse Patient Records regulations: The Federal rules restrict any use of the information to criminally investigate or prosecute any alcohol or drug abuse patient.[facility] CenterIn the event this information is protected by the Federal Confidentiality of Alcohol and Drug Abuse Patient Records regulations: The Federal rules restrict any use of the information to criminally investigate or prosecute any alcohol or drug abuse patient.[facility] Care Teams (unrecognized sec tion and content) Merchandise Executive Relationship Specialty Start Date End Date Linda Alvarez MD [address] [facility] [place] [address] PCP - General Internal Medicine 09/22/18 Merchandise Executive Relationship Specialty Start Date End Date Linda Alvarez MD [address] [facility] [place] [address] PCP - General Internal Medicine 09/22/18 Merchandise Executive Relationship Specialty Start Date End Date Linda Alvarez MD [address] [facility] [place] [address] PCP - General Internal Medicine 09/22/18 Merchandise Executive Relationship Specialty Start Date End Date Linda Alvarez MD [address] [facility] [place] [address] PCP - General Internal Medicine 09/22/18 Merchandise Executive Relationship Specialty Start Date End Date Linda Alvarez MD [address] [facility] [place] [address] PCP - General Internal Medicine 09/22/18 Merchandise Executive Relationship Specialty Start Date End Date Linda Alvarez MD [address] [facility] [place] [address] PCP - General Internal Medicine 09/22/18 Merchandise Executive Relationship Specialty Start Date End Date Linda Alvarez MD [address] [facility] [place] [address] PCP - General Internal Medicine 09/22/18 Merchandise Executive Relationship Specialty Start Date End Date Linda Alvarez MD [address] [place] [address] PCP - General Internal Medicine 09/22/18 Merchandise Executive Relationship Specialty Start Date End Date Linda Alvarez MD [address] [place], [place] [id number] PCP - General Internal Medicine 09/22/18 Reason for Visit (unrecogniz ed section and content) Specialty Diagnoses / Procedures Referred By Contac t Referred To Contact CT IMAGING Diagnoses Infection in abdomen (HCC) Procedures CT ABD/PEL W IVCON CT ABD & PELVIS W/CONTRAST Linda Alvarez MD [address] [place] [address] [place] [address] Referral ID Status Reason Start Date Expiration Date V isits Requested Visits Authorized [id number] Closed Auto-Generate d Referral 10/11/2022 11/25/2022 2 2 Reason Comments Recheck thyroid, sleep apnea machine broke,deviated septum, palpations Reason Comments Results Reason Comments Follow Up express care- stomac h pains x 6 days Reason Comments Consult Abdominal pain Specialty Diagnoses / Procedures Referred By Contac t Referred To Contact General Surgery Diagnoses Right lower quadrant pain Procedures CONSULT TO GENERAL SURGERY OFFICE/OUTPATIENT [facility] 60-74 MINUTES Linda Alvarez MD [address] [place] [address] Referral ID Status Reason Start Date Expiration Date V isits Requested Visits Authorized [id number] Closed PCP Requested Referral 10/11/2022 10/11/2023 1 1 Reason Onset Date Comments Refill Request 11/04/2022 Reason Comments Follow Up abdomen pain follow up-improved Reason Comments Refill Request Reason Comments Consult Dysuria Reason Onset Date Comments Refill Request 06/29/2023 INFORMATION SOURCE (unrecogn ized section and content) FOR RECORDS PERTAINING TO PATIENTS WHO ARE OR HAVE BEEN ENROLLED IN A CHEMICAL DEPENDENCY/SUBSTANCEABUSE PROGRAM, SOME INFORMATION MAY BE OMITTED. This clinical summary was aggregated from multiple sources. Caution should be exercised in using it in the provision of clinical care. This summary normalizes information from multiple sources, and as a consequence, information in this document may materially change the coding, format and clinical context of patient data. In addition, data may be omitted in some cases. CLINICAL DECISIONS SHOULD BE BASED ON THE PRIMARY CLINICAL RECORDS. [facility] [employer] [facility]. provides no warranty or guarantee of the accuracy or completeness of information in this document.
[2023-10-12 13:02] VITALS: BP 102/70; RESP 16
== END 2023-10-12 13:04 | disposition home or self-care (01) ==
PROVIDERS: Nurse Practitioner; Emergency Provider Emergency Medicine; PCP Internal Medicine; Visit Provider Emergency Medicine
DX: N12 Tubulo-interstitial nephritis, not specified as acute or chronic (principal); N13.6 Pyonephrosis; E03.9 Hypothyroidism, unspecified; B96.20 Unspecified Escherichia coli [E. coli] as the cause of diseases classified elsewhere
CPT/HCPCS: 74176; 80053; 81001; 83690; 85025; 87086; 87088; 87186; 96361; 96374; 96375; 99283; J7030; A4216; J2405